=== PATIENT | female | born 1940 | race Caucasian/White ===

== ENCOUNTER 2018-01-10 07:24 | Day surgery (SDC) | payer MEDICARE, BC ==
[~2018-01-10 07:24] MED LIST: Gentamicin 40 MG/ML 2 ML Vial ONE; Midazolam 1 MG/ML 2 ML SDV ONE; Povidone-Iodine 10% Soln 118.25 ML Bottle ONE; Propofol 200 MG/20 ML SDV ONE; fentaNYL 100 MCG/2 ML SDV ONE
[2018-01-10] MEDS ORDERED: ceFAZolin 2 GM in Premix Bag 1 BAG IV ONE (08:00)
[2018-01-10] MEDS ORDERED: Lactated Ringers 1,000 ML IV SCH (08:00)
[2018-01-10] MEDS ORDERED: Scopolamine 1.5 MG Transdermal Patch TOP SCH (08:00)
[2018-01-10] MEDS ORDERED: Acetaminophen 500 MG Tab PO ONE (08:00)
[2018-01-10] MEDS ORDERED: Gabapentin 300 MG Cap PO ONE (08:00)
[2018-01-10] MEDS ORDERED: Ketamine 500 MG/5 ML MDV IV SCH (09:00)
[2018-01-10] MEDS ORDERED: Ropivacaine 49.25 ML, Ketorolac 30 MG, EPINEPHrine 0.5 MG, cloNIDine 80 MCG, Sodium Chl... INJECT ONE ×5 (09:00)
[2018-01-10] MEDS: Tranexamic Acid 970 MG in Sodium Chloride 0.9% 50 ML IV SCH ×2 (10:13→14:11)
[2018-01-10] MEDS ORDERED: Morphine 2 MG/ML Syringe IVPUSH PRN (11:25)
[2018-01-10] MEDS ORDERED: Ketorolac 30 MG/ML SDV IVPUSH PRN (11:25)
[2018-01-10] MEDS ORDERED: Docusate Sodium 100 MG Cap PO PRN (11:25)
[2018-01-10] MEDS ORDERED: Naloxone 0.4 MG/ML SDV IVPUSH PRN (11:25)
[2018-01-10] MEDS ORDERED: Aluminum Hydroxide/Magnesium Hydroxide/Simethicone Susp 30 ML Cup PO PRN (11:25)
[2018-01-10] MEDS ORDERED: Sennosides 8.6 MG Tab PO PRN (11:25)
[2018-01-10] MEDS ORDERED: Zolpidem 5 MG Tab PO PRN (11:25)
[2018-01-10] MEDS ORDERED: diphenhydrAMINE 50 MG/ML SDV IVPUSH PRN (11:25)
[2018-01-10] MEDS ORDERED: Bisacodyl 5 MG Tab PO PRN (11:25)
[2018-01-10] MEDS ORDERED: Magnesium Hydroxide 400 MG/5 ML Susp 30 ML Cup PO PRN (11:25)
[2018-01-10] MEDS ORDERED: Nitroglycerin 0.4 MG Tab.SL SL PRN (11:29)
[2018-01-10] MEDS ORDERED: Albuterol 8 GM Inhaler INH PRN (11:29)
[2018-01-10] MEDS ORDERED: Acetaminophen 1,000 MG in Premix Bag 1 BAG IV SCH (11:30)
[2018-01-10] MEDS ORDERED: fentaNYL 100 MCG/2 ML SDV IVPUSH ONE (11:39)
[2018-01-10] MEDS: Lactated Ringers 1,000 ML IV SCH ×2 (11:58→20:11)
--- NOTE | 2018-01-10 13:21 | CR ---
Knee 1V or 2V Lt INDICATION: post total knee replacement FINDINGS: Postoperative changes left total knee arthroplasty. Negative for postoperative purposes.
--- NOTE | 2018-01-10 14:53 | PCM.PN ---
- General Info Date of Service: 01/10/18 Functional Status: Reports: Pain Controlled - Review of Systems Pulmonary: Denies: Shortness of Breath Musculoskeletal: Reports: Joint Pain (left knee) Systems Review Comment:: No acute events since surgery. She had an uneventful left total knee arthroplasty. Moderate pain postoperatively. No paresthesias. She is able to wiggle her toes on both feet without difficulty. No complaints of shortness of breath or abdominal pain. - Patient Data Vitals - Most Recent: Last Vital Signs Temp 35.6 C 01/10/18 13:32 Pulse 50 L 01/10/18 13:57 Resp 16 01/10/18 13:57 BP 123/62 01/10/18 13:47 Pulse Ox 93 L 01/10/18 13:57 Weight - Most Recent: 94.801 kg I&O - Last 24 Hours: Intake & Output 01/09/18 01/10/18 01/10/18 22:59 06:59 14:59 Intake Total 200 Output Total 0 Balance 200 Lab Results Last 24 Hours: Laboratory Results - last 24 hr 01/10/18 01/10/18 Range/Units 07:45 08:28 Bleeding Time 8.5 (2.5-9.5) min Blood Type O POSITIVE Gel Antibody Screen Negative Med Orders - Current: Current Medications Al Hydroxide/Mg Hydroxide (Mag-Al Plus) 30 ml PO Q4H PRN PRN Reason: Constipation Albuterol (Ventolin Hfa) 0 gm INH Q6H PRN PRN Reason: Wheezing Amlodipine Besylate (Norvasc) 10 mg PO BEDTIME MICHELLE Bisacodyl (Dulcolax) 10 mg PO DAILY PRN PRN Reason: Constipation Cholestyramine Resin (Cholestyramine Packet) 4 gm PO DAILY@1000 MICHELLE Clopidogrel Bisulfate (Plavix) 75 mg PO DAILY MICHELLE Diphenhydramine HCl (Benadryl) 25 mg IVPUSH Q4H PRN PRN Reason: Itching Docusate Sodium (Colace) 100 mg PO BID PRN PRN Reason: Constipation Hydrochlorothiazide (Hydrochlorothiazide) 25 mg PO DAILY MICHELLE Acetaminophen 1,000 mg/ Premix 100 mls @ 400 mls/hr IV Q6H MICHELLE Stop: 01/11/18 05:44 Last Admin: 01/10/18 14:11 Dose: Not Given Lactated Ringer's (Ringers, Lactated) 1,000 mls @ 100 mls/hr IV ASDIRECTED [facility] Last Admin: 01/10/18 11:58 Dose: 100 mls/hr Insulin Detemir (Levemir) 17 unit SUBCUT BID [facility] Ketamine HCl (Ketalar) 27 mg IV ASDIRECTED [facility] Ketorolac Tromethamine (Toradol) 30 mg IVPUSH Q8H PRN PRN Reason: Pain Lisinopril (Prinivil) 20 mg PO BID [facility] Magnesium Hydroxide (Milk Of Magnesia) 30 ml PO BID PRN PRN Reason: Constipation Melatonin (Melatonin) 6 mg PO BEDTIME [facility] Metoprolol Tartrate (Lopressor) 25 mg PO BID [facility] Morphine Sulfate (Morphine) 2 mg IVPUSH Q2H PRN PRN Reason: Pain Naloxone HCl (Narcan) 0.1 mg IVPUSH ONETIME PRN PRN Reason: Oversedation Nitroglycerin (Nitrostat) 0.4 mg SL Q5M PRN PRN Reason: Chest Pain Non-Formulary Medication (Fluticasone Propionate [Flovent Hfa 44 Mcg]) 2 puff IH DAILY [facility] [Glucosamine & (Chondroitin) 1 tab PO TID [facility] Ondansetron HCl (Zofran) 8 mg IVPUSH Q4H PRN PRN Reason: Nausea/Vomiting Oxybutynin Chloride (Oxybutynin) 5 mg PO BEDTIME [facility] Potassium Chloride (Klor-Con M20) 20 meq PO TIDMEALS [facility] Scopolamine (Transderm-Scop) 1.5 mg TOP Q72H [facility] Stop: 01/13/18 07:00 Last Admin: 01/10/18 07:47 Dose: 1.5 mg Senna (Senna) 8.6 mg PO BID PRN PRN Reason: Constipation Simvastatin (Zocor) 20 mg PO BEDTIME [facility] Sodium Chloride (Saline Flush) 10 ml FLUSH DAILY [facility] Tramadol HCl (Ultram) 100 mg PO Q6H PRN PRN Reason: Pain Zolpidem Tartrate (Ambien) 5 mg PO BEDTIME PRN PRN Reason: Sleep Discontinued Medications Acetaminophen (Tylenol Extra Strength) 1,000 mg PO ONETIME ONE Stop: 01/10/18 08:01 Last Admin: 01/10/18 07:47 Dose: 1,000 mg Ropivacaine 49.25 ml/Ketorolac Tromethamine 30 mg/Epinephrine HCl 0.5 mg/ Clonidine HCl 80 mcg/ Sodium Chloride 48.45 ml 0 ml INJECT ONETIME ONE Stop: 01/10/18 09:01 Fentanyl (Sublimaze) Confirm Administered Dose 100 mcg .ROUTE .STK-MED ONE Stop: 01/10/18 06:45 Fentanyl (Sublimaze) 100 mcg IVPUSH ONETIME ONE Stop: 01/10/18 11:40 Last Admin: 01/10/18 11:50 Dose: 100 mcg Gabapentin (Neurontin) 300 mg PO ONETIME ONE Stop: 01/10/18 08:01 Last Admin: 01/10/18 07:47 Dose: 300 mg Gentamicin Sulfate (Gentamicin) Confirm Administered Dose 240 mg .ROUTE .STK- MED ONE Stop: 01/10/18 07:10 Last Admin: 01/10/18 10:18 Dose: 240 mg Cefazolin Sodium/Dextrose 2 gm (/ Premix) 50 mls @ 100 mls/hr IV ONETIME ONE Stop: 01/10/18 08:29 Last Admin: 01/10/18 09:30 Dose: 100 mls/hr Lactated Ringer's (Ringers, Lactated) 1,000 mls @ 0 mls/hr IV ASDIRECTED [facility] Last Admin: 01/10/18 08:17 Dose: 100 mls/hr Tranexamic Acid 970 mg/ Sodium (Chloride) 59.7 mls @ 238.8 mls/hr IV Q2H [facility] Stop: 01/10/18 11:14 Last Admin: 01/10/18 14:11 Dose: Not Given Midazolam HCl (Versed 1 Mg/Ml) Confirm Administered Dose 2 mg .ROUTE .STK-MED ONE Stop: 01/10/18 06:46 Povidone Iodine (Betadine 10% Soln) Confirm Administered Dose 1 ml .ROUTE .STK- MED ONE Stop: 01/10/18 07:10 Last Admin: 01/10/18 10:19 Dose: 1 ml Propofol (Diprivan 20 Ml) Confirm Administered Dose 200 mg .ROUTE .STK-MED ONE Stop: 01/10/18 06:45 - Exam Quality Assessment: Supplemental Oxygen General: Alert, Oriented, Cooperative, No Acute Distress Neck: Supple Lungs: Clear to Auscultation, Normal Respiratory Effort Cardiovascular: Regular Rate, Regular Rhythm GI/Abdominal Exam: Normal Bowel Sounds, Soft, No Distention Extremities: No Pedal Edema, Other (left knee wrapped in SAMEER. 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: Chronic Current Visit: Yes - Problem List Review Problem List Initiated/Reviewed/Updated: Yes - My Orders Last 24 Hours: My Active Orders 01/10/18 14:51 Communication Order [RC] PRN Communication Order [RC] PRN Diabetes Education [RC] Click to Edit Notify Provider [RC] PRN 01/10/18 16:30 GLUCOSE POC LAB TO COLLECT [POC] QIDACANDBED 01/10/18 17:00 Insulin Aspart [NovoLOG] See Protocol SUBCUT QIDACANDBED 01/10/18 21:00 GLUCOSE POC LAB TO COLLECT [POC] QIDACANDBED 01/11/18 07:30 GLUCOSE POC LAB TO COLLECT [POC] QIDACANDBED 01/11/18 11:30 GLUCOSE POC LAB TO COLLECT [POC] QIDACANDBED 01/11/18 16:30 GLUCOSE POC LAB TO COLLECT [POC] QIDACANDBED 01/11/18 21:00 GLUCOSE POC LAB TO COLLECT [POC] QIDACANDBED 01/12/18 07:30 GLUCOSE POC LAB TO COLLECT [POC] QIDACANDBED 01/12/18 11:30 GLUCOSE POC LAB TO COLLECT [POC] QIDACANDBED 01/12/18 16:30 GLUCOSE POC LAB TO COLLECT [POC] QIDACANDBED 01/12/18 21:00 GLUCOSE POC LAB TO COLLECT [POC] QIDACANDBED 01/13/18 07:30 GLUCOSE POC LAB TO COLLECT [POC] QIDACANDBED 01/13/18 11:30 GLUCOSE POC LAB TO COLLECT [POC] QIDACANDBED 01/13/18 16:30 GLUCOSE POC LAB TO COLLECT [POC] QIDACANDBED 01/13/18 21:00 GLUCOSE POC LAB TO COLLECT [POC] QIDACANDBED 01/14/18 07:30 GLUCOSE POC LAB TO COLLECT [POC] QIDACANDBED 01/14/18 11:30 GLUCOSE POC LAB TO COLLECT [POC] QIDACANDBED 01/14/18 16:30 GLUCOSE POC LAB TO COLLECT [POC] QIDACANDBED 01/14/18 21:00 GLUCOSE POC LAB TO COLLECT [POC] QIDACANDBED 01/15/18 07:30 GLUCOSE POC LAB TO COLLECT [POC] QIDACANDBED 01/15/18 11:30 GLUCOSE POC LAB TO COLLECT [POC] QIDACANDBED 01/15/18 16:30 GLUCOSE POC LAB TO COLLECT [POC] QIDACANDBED 01/15/18 21:00 GLUCOSE POC LAB TO COLLECT [POC] QIDACANDBED - Plan Plan:: ASSESSMENT AND PLAN Primary osteoarthritis of the left knee - status post left total knee arthroplasty. Stable and doing well postoperatively. -Postop cares per orthopedic team Insulin dependent diabetes mellitus, controlled - patient reports mild elevation of morning sugars but in general has had good control. -Continue Januvia -Substitute Levemir twice daily for Tresiba -Low-dose sliding scale insulin Essential hypertension - blood pressure control acceptable so far. -Continue home medications Artie Pedro M.D.
[2018-01-10] MEDS: Potassium Chloride 20 MEQ Tab.ER PO SCH ×2 (15:09→16:55)
[2018-01-10] MEDS: Ondansetron 4 MG/2 ML SDV IVPUSH PRN (15:10)
[2018-01-10] MEDS: Acetaminophen 1,000 MG in Premix Bag 1 BAG IV SCH ×2 (16:54→21:33)
[2018-01-10] MEDS: Insulin Aspart 100 Units/ML 3 ML Pen SUBCUT SCH ×2 (17:02→21:32)
[2018-01-10] MEDS: traMADol 50 MG Tab PO PRN (19:32)
--- NOTE | 2018-01-10 20:49 | OR ---
DATE OF PROCEDURE: 01/10/2018 PREOPERATIVE DIAGNOSIS: Left knee primary osteoarthritis. POSTOPERATIVE DIAGNOSIS: Left knee primary osteoarthritis. PROCEDURE: Left total knee arthroplasty. ANESTHESIA: Spinal plus conscious sedation. FLUID: Lactated Ringer solution. ESTIMATED BLOOD LOSS: 150 mL. COMPLICATIONS: None. SPECIMEN: None. DISCHARGE DISPOSITION: Stable to PACU. INSTRUMENTATION: DePuy attune size 6 cruciate retaining femoral component; size 6, 8 mm fixed bearing tibial insert polyethylene; size 6 tibial base fixed bearing and 35 mm polyethylene dome patella. INDICATIONS FOR PROCEDURE: The patient was seen preoperatively in the clinic. She had failed nonoperative treatment. Preoperative imaging confirmed the above mentioned diagnosis. Risks and benefits of the procedure were explained to the patient. Informed consent was obtained. DETAILS OF PROCEDURE: The patient was seen preoperatively by myself and the Anesthesia staff at the preoperative holding area where the operative site was marked. She was brought to the operative suite by the Anesthesia staff where spinal sedation plus conscious sedation was administered. A well-padded tourniquet was placed under left thigh. The left lower extremity was then prepped and draped in a sterile manner. Time-out was called identifying the correct patient, correct procedure, correct site, and the antibiotics had begun within an appropriate period of time. The left lower extremity was then elevated and exsanguinated. Tourniquet was raised to 300 mmHg for 37 minutes and let down during cementing. A midline incision was made 3 fingerbreadths proximal to the patella down to the level of the tibial tubercle in the midline. I then made a medial parapatellar arthrotomy. We then performed a full synovectomy with removal of the infrapatellar fat pad. I then everted the patella and flexed the knee and then made 2 cuts on the patella freehand. I then extended the knee and then trialed with a 35 and then drilled and then placed the trial. I then flexed the knee again, lateralizing the patella, and then reamed the distal femoral canal. I then inserted my intramedullary guide at 9 mm distal cut, 5 mm valgus. I pinned this in place, made the distal cut, and then removed the pins and guide. I then released the anterior cruciate ligament and then used a posterior condylar guide at 3-degree valgus, pinned this in place, it measured a 6. I removed the guide and then placed the chamfer block. I then made my anterior and posterior chamfer cuts. I then removed the block and then used an osteotome to remove any bone fragments. I then used the blunt osteotome and then protecting the medial and lateral collateral ligaments with retractors. I used my extramedullary tibial guide with a 3 mm resection using the stylus, pinned that in place, and then made my proximal tibial resection after this had been completed. I then removed my retractors and then placed laminar screen printing cloth spreader in the medial and lateral compartments and then removed any extra meniscus and any posterior osteophytes. After this, then, I took care to preserve as much of the PCL as possible. After this had been performed, I anteriorized the tibia again with blunt Hohmann and protected the medial and lateral collateral ligaments and applied my tibial baseplate and cutting guide. I then placed the tower, reamed the proximal tibia, and then tamped the proximal tibia. I then placed my trial femoral component and then placed my trial polyethylene inserts until I got one with stability, which was the one mentioned above. I then drilled my lugs for the distal femur. We then removed all the components, copiously irrigated with saline, dried as much as possible, and then cemented those final components in place. After I let the cement dry, I then controlled any bleeders and then removed any extra cement and irrigated multiple times to make sure that we got any extra cement fragments out from the posterior capsule. After this had been completed, I placed some Betadine infused irrigation through the wound and then suctioned this out. We then placed two #5 Ethibond at the proximal and distal pole of the patella followed by #1 StrataFix in a running continuous manner through the arthrotomy, followed by #2 StrataFix subcutaneously, followed by skin kmaryn, followed by sterile dressing. The patient was then allowed to awaken from conscious sedation and was transferred to the hospital bed and taken to the PACU in stable condition. Nick Ledezma DO /[id number]
[2018-01-10] MEDS: Simvastatin 20 MG Tab PO SCH (21:29)
[2018-01-10] MEDS: amLODIPine 10 MG Tab PO SCH (21:30)
[2018-01-10] MEDS: Oxybutynin 5 MG Tab PO SCH (21:30)
[2018-01-10] MEDS: Melatonin 3 MG Tab PO SCH (21:31)
[2018-01-10] MEDS: Lisinopril 20 MG Tab PO SCH (21:31)
[2018-01-10] MEDS: Metoprolol Tartrate 25 MG Tab PO SCH (21:31)
[2018-01-10] MEDS: Insulin Detemir 100 Units/ML 3 ML Pen SUBCUT SCH (21:33)
[2018-01-11] MEDS: Acetaminophen 1,000 MG in Premix Bag 1 BAG IV SCH ×2 (03:35→09:02)
[2018-01-11] MEDS: traMADol 50 MG Tab PO PRN ×2 (07:21→14:47)
[2018-01-11] MEDS ORDERED: Sodium Chloride 0.9% 500 ML IV ONE (08:00)
--- NOTE | 2018-01-11 08:39 | PCM.PN ---
- General Info Functional Status: Reports: Pain Controlled - Review of Systems General: Reports: Weakness HEENT: Reports: No Symptoms Pulmonary: Reports: No Symptoms Cardiovascular: Reports: No Symptoms Gastrointestinal: Reports: No Symptoms Genitourinary: Reports: No Symptoms Musculoskeletal: Reports: Joint Pain Skin: Reports: No Symptoms Neurological: Reports: No Symptoms Psychiatric: Reports: No Symptoms - Patient Data Vitals - Most Recent: Last Vital Signs Temp 97.3 F 01/11/18 07:00 Pulse 68 01/11/18 07:00 Resp 18 01/11/18 07:00 BP 107/66 01/11/18 07:00 Pulse Ox 92 L 01/11/18 07:35 Weight - Most Recent: 209 lb I&O - Last 24 Hours: Intake & Output 01/10/18 01/11/18 01/11/18 22:59 06:59 14:59 Intake Total 1520 1397 Output Total 650 Balance 1520 747 Lab Results Last 24 Hours: Laboratory Results - last 24 hr 01/10/18 01/11/18 01/11/18 Range/Units 08:28 04:50 04:50 WBC 12.0 H (4.5-11.0) K/uL RBC 3.32 (3.30-5.50) M/uL Hgb 10.4 L D (12.0-15.0) g/dL Hct 31.7 L (36.0-48.0) % MCV 96 (80-98) fL MCH 31 (27-31) pg MCHC 33 (32-36) % Plt Count 223 (150-400) K/uL Neut % (Auto) 79 H (36-66) % Lymph % (Auto) 13 L (24-44) % Burt % (Auto) 8 H (2-6) % Eos % (Auto) 0 L (2-4) % Baso % (Auto) 0 (0-1) % Bleeding Time 8.5 (2.5-9.5) min Sodium 138 L (140-148) mmol/L Potassium 4.5 (3.6-5.2) mmol/L Chloride 105 (100-108) mmol/L Carbon Dioxide 29 (21-32) mmol/L Anion Gap 8.5 (5.0-14.0) mmol/L BUN 13 (7-18) mg/dL Creatinine 0.9 (0.6-1.0) mg/dL Est Cr Clr Drug Dosing 45.20 mL/min Estimated GFR (MDRD) > 60 (>60) Glucose 171 H (74-106) mg/dL Calcium 8.0 L (8.5-10.1) mg/dL Total Bilirubin 0.5 (0.2-1.0) mg/dL AST 11 L (15-37) U/L ALT 16 (12-78) U/L Alkaline Phosphatase 57 (46-116) U/L Total Protein 5.0 L (6.4-8.2) g/dL Albumin 2.5 L (3.4-5.0) g/dL Globulin 2.5 (2.3-3.5) g/dL Albumin/Globulin Ratio 1.0 L (1.2-2.2) Med Orders - Current: Current Medications Al Hydroxide/Mg Hydroxide (Mag-Al Plus) 30 ml PO Q4H PRN PRN Reason: Constipation Albuterol (Ventolin Hfa) 0 gm INH Q6H PRN PRN Reason: Wheezing Amlodipine Besylate (Norvasc) 10 mg PO BEDTIME [facility] Last Admin: 01/10/18 21:30 Dose: 10 mg Bisacodyl (Dulcolax) 10 mg PO DAILY PRN PRN Reason: Constipation Cholestyramine Resin (Cholestyramine Packet) 4 gm PO DAILY@1000 [facility]HELLE Clopidogrel Bisulfate (Plavix) 75 mg PO DAILY [facility] Diphenhydramine HCl (Benadryl) 25 mg IVPUSH Q4H PRN PRN Reason: Itching Docusate Sodium (Colace) 100 mg PO BID PRN PRN Reason: Constipation Hydrochlorothiazide (Hydrochlorothiazide) 25 mg PO DAILY [facility] Lactated Ringer's (Ringers, Lactated) 1,000 mls @ 100 mls/hr IV ASDIRECTED [facility] Last Admin: 01/10/18 20:11 Dose: 100 mls/hr Acetaminophen 1,000 mg/ Premix 100 mls @ 400 mls/hr IV Q6H [facility] Stop: 01/11/18 10:14 Last Admin: 01/11/18 03:35 Dose: 400 mls/hr Sodium Chloride (Normal Saline) 500 mls @ 500 mls/hr IV BOLUS ONE Stop: 01/11/18 08:59 Insulin Aspart (Novolog) 0 unit SUBCUT QIDACANDBED [facility]; Protocol Last Admin: 01/10/18 21:32 Dose: 3 units Insulin Detemir (Levemir) 17 unit SUBCUT BID [facility] Last Admin: 01/10/18 21:33 Dose: 17 units Ketamine HCl (Ketalar) 27 mg IV ASDIRECTED [facility] Ketorolac Tromethamine (Toradol) 30 mg IVPUSH Q8H PRN PRN Reason: Pain Lisinopril (Prinivil) 20 mg PO BID [facility] Last Admin: 01/10/18 21:31 Dose: 20 mg Magnesium Hydroxide (Milk Of Magnesia) 30 ml PO BID PRN PRN Reason: Constipation Melatonin (Melatonin) 6 mg PO BEDTIME [facility] Last Admin: 01/10/18 21:31 Dose: 6 mg Metoprolol Tartrate (Lopressor) 25 mg PO BID [facility] Last Admin: 01/10/18 21:31 Dose: 25 mg Morphine Sulfate (Morphine) 2 mg IVPUSH Q2H PRN PRN Reason: Pain Last Admin: 01/10/18 15:04 Dose: 2 mg Naloxone HCl (Narcan) 0.1 mg IVPUSH ONETIME PRN PRN Reason: Oversedation Nitroglycerin (Nitrostat) 0.4 mg SL Q5M PRN PRN Reason: Chest Pain Non-Formulary Medication (Fluticasone Propionate [Flovent Hfa 44 Mcg]) 2 puff IH DAILY [facility] [Glucosamine & (Chondroitin) 1 tab PO TID [facility] Last Admin: 01/10/18 21:26 Dose: Not Given Ondansetron HCl (Zofran) 8 mg IVPUSH Q4H PRN PRN Reason: Nausea/Vomiting Last Admin: 01/10/18 15:10 Dose: 8 mg Oxybutynin Chloride (Oxybutynin) 5 mg PO BEDTIME [facility] Last Admin: 01/10/18 21:30 Dose: 5 mg Potassium Chloride (Klor-Con M20) 20 meq PO TIDMEALS [facility] Last Admin: 01/10/18 16:55 Dose: 20 meq Scopolamine (Transderm-Scop) 1.5 mg TOP Q72H [facility] Stop: 01/13/18 07:00 Last Admin: 01/10/18 07:47 Dose: 1.5 mg Senna (Senna) 8.6 mg PO BID PRN PRN Reason: Constipation Simvastatin (Zocor) 20 mg PO BEDTIME [facility] Last Admin: 01/10/18 21:29 Dose: 20 mg Sodium Chloride (Saline Flush) 10 ml FLUSH DAILY [facility] Tramadol HCl (Ultram) 100 mg PO Q6H PRN PRN Reason: Pain Last Admin: 01/11/18 07:21 Dose: 100 mg Zolpidem Tartrate (Ambien) 5 mg PO BEDTIME PRN PRN Reason: Sleep Discontinued Medications Acetaminophen (Tylenol Extra Strength) 1,000 mg PO ONETIME ONE Stop: 01/10/18 08:01 Last Admin: 01/10/18 07:47 Dose: 1,000 mg Ropivacaine 49.25 ml/Ketorolac Tromethamine 30 mg/Epinephrine HCl 0.5 mg/ Clonidine HCl 80 mcg/ Sodium Chloride 48.45 ml 0 ml INJECT ONETIME ONE Stop: 01/10/18 09:01 Last Admin: 01/11/18 00:17 Dose: Not Given Fentanyl (Sublimaze) Confirm Administered Dose 100 mcg .ROUTE .STK-MED ONE Stop: 01/10/18 06:45 Fentanyl (Sublimaze) 100 mcg IVPUSH ONETIME ONE Stop: 01/10/18 11:40 Last Admin: 01/10/18 11:50 Dose: 100 mcg Gabapentin (Neurontin) 300 mg PO ONETIME ONE Stop: 01/10/18 08:01 Last Admin: 01/10/18 07:47 Dose: 300 mg Gentamicin Sulfate (Gentamicin) Confirm Administered Dose 240 mg .ROUTE .STK- MED ONE Stop: 01/10/18 07:10 Last Admin: 01/10/18 10:18 Dose: 240 mg Cefazolin Sodium/Dextrose 2 gm (/ Premix) 50 mls @ 100 mls/hr IV ONETIME ONE Stop: 01/10/18 08:29 Last Admin: 01/10/18 09:30 Dose: 100 mls/hr Lactated Ringer's (Ringers, Lactated) 1,000 mls @ 0 mls/hr IV ASDIRECTED [facility] Last Admin: 01/10/18 08:17 Dose: 100 mls/hr Tranexamic Acid 970 mg/ Sodium (Chloride) 59.7 mls @ 238.8 mls/hr IV Q2H [facility] Stop: 01/10/18 11:14 Last Admin: 01/10/18 14:11 Dose: Not Given Acetaminophen 1,000 mg/ Premix 100 mls @ 400 mls/hr IV Q6H [facility] Stop: 01/11/18 05:44 Last Admin: 01/10/18 14:11 Dose: Not Given Insulin Detemir (Levemir) 17 unit SUBCUT BID [facility] Midazolam HCl (Versed 1 Mg/Ml) Confirm Administered Dose 2 mg .ROUTE .STK-MED ONE Stop: 01/10/18 06:46 Povidone Iodine (Betadine 10% Soln) Confirm Administered Dose 1 ml .ROUTE .STK- MED ONE Stop: 01/10/18 07:10 Last Admin: 01/10/18 10:19 Dose: 1 ml Propofol (Diprivan 20 Ml) Confirm Administered Dose 200 mg .ROUTE .STK-MED ONE Stop: 01/10/18 06:45 - Exam General: Alert, Oriented HEENT: Pupils Equal, Mucous Membr. Moist/[place] Lungs: Normal Respiratory Effort Extremities: Joint Swelling Peripheral Pulses: 2+: Posterior Tibial (L), Posterior Tibial (R) Skin: Warm, Dry, Intact Wound/Incisions: Healing Well, Dressing Dry and Intact, No Drainage Neurological: No New Focal Deficit, Reflexes Equal Bilateral Psy/Mental Status: Alert, Normal Affect, Normal Mood Physical Findings Comments:: Patient has good range of motion spring. She has no pain at rest. When she is standing the pain is 5 out of 10. Her range of motion passively is 0-100 flexion. Actively it is 30-100 flexion. Her pain is well controlled. She states that she just feels little bit weak this morning. Her blood pressure is low surgery we are waiting for that resolved prior to starting physical therapy. - Problem List Review Problem List Initiated/Reviewed/Updated: Yes - My Orders Last 24 Hours: My Active Orders 01/10/18 08:00 Scopolamine [Transderm-Scop] 1.5 mg TOP Q72H SCD [Sequential Compression Device] [OM.PC] Routine 01/10/18 09:00 Ketamine [Ketalar] 27 mg IV ASDIRECTED 01/10/18 11:25 Patient Status [ADT] Routine Ambulate [RC] ASDIRECTED Antiembolic Devices [RC] .Routine Head of Bed Elevation [RC] CONTINUOUS May Shower [RC] ASDIRECTED Neurovascular Check [RC] Q4HR Pulse Oximetry [RC] CONTINUOUS RT Incentive Spirometry [RC] Q1HWA Turn, Cough, Deep Breathe [RC] Q1HWA Up to Chair [RC] TIDMEALS Urinary Catheter Removal [RC] Per Unit Routine VTE/DVT Education [RC] Click to Edit Wound Care [RC] Q12H Consult to Physician [CONS] Routine OT Evaluation and Treatment [CONS] Routine PT Evaluation and Treatment [CONS] Routine Respiratory Care Assess and Treatment [CONS] Routine Alum Hydrox/Mag Hydrox/Simeth [Mag-Al Plus] 30 ml PO Q4H PRN Bisacodyl [Dulcolax] 10 mg PO DAILY PRN Docusate Sodium [Colace] 100 mg PO BID PRN Ketorolac [Toradol] 30 mg IVPUSH Q8H PRN Magnesium Hydroxide [Milk of Magnesia] 30 ml PO BID PRN Morphine 2 mg IVPUSH Q2H PRN Naloxone [Narcan] 0.1 mg IVPUSH ONETIME PRN Ondansetron [Zofran] 8 mg IVPUSH Q4H PRN Sennosides [Senna] 8.6 mg PO BID PRN Zolpidem [Ambien] 5 mg PO BEDTIME PRN diphenhydrAMINE [Benadryl] 25 mg IVPUSH Q4H PRN traMADol [Ultram] 100 mg PO Q6H PRN DVT/VTE Prophylaxis Reflex [OM.PC] Routine Sequential Compression Device [OM.PC] Per Unit Routine Weight bearing status [OM.PC] Routine Resuscitation Status Routine 01/10/18 11:29 Albuterol [Ventolin HFA] 0 gm INH Q6H PRN Nitroglycerin [Nitrostat] 0.4 mg SL Q5M PRN 01/10/18 11:30 Lactated Ringers [Ringers, Lactated] 1,000 ml IV ASDIRECTED Convert IV to Saline Lock [OM.PC] PER UNIT ROUTINE Ice Therapy [OM.PC] PER UNIT ROUTINE Oral Care [OM.PC] BID 01/10/18 14:00 Gluc 2KCl/Chondr/Alvin Hy/Hy Ac [Glucosamine & Chondroitin Cap] 1 tab PO TID Potassium Chloride [Klor-Con M20] 20 meq PO TIDMEALS 01/10/18 16:00 Acetaminophen [Ofirmev] 1,000 mg Premix Bag 1 bag IV Q6H 01/10/18 21:00 Lisinopril [Prinivil] 20 mg PO BID Melatonin 6 mg PO BEDTIME Metoprolol Tartrate [Lopressor] 25 mg PO BID Oxybutynin 5 mg PO BEDTIME Simvastatin [Zocor] 20 mg PO BEDTIME amLODIPine [Norvasc] 10 mg PO BEDTIME 01/10/18 21:05 Insulin Detemir [Levemir] 17 unit SUBCUT BID 01/10/18 Lunch Advance Diet Instructions [DIET] 01/11/18 09:00 Alogliptin Benzoate [Alogliptin] 25 mg PO DAILY Clopidogrel [Plavix] 75 mg PO DAILY Fluticasone Propionate [Flovent HFA 44 mcg] 2 puff IH DAILY Hydrochlorothiazide 25 mg PO DAILY Sodium Chloride 0.9% [Saline Flush] 10 ml FLUSH DAILY 01/11/18 10:00 Cholestyramine/Sucrose [Cholestyramine Packet] 4 gm PO DAILY@1000 01/11/18 11:30 Oral Care [OM.PC] BID 01/12/18 05:15 CBC WITH AUTO DIFF [HEME] DAILY COMPREHENSIVE METABOLIC PN,CMP [CHEM] DAILY 01/12/18 11:30 Oral Care [OM.PC] BID 01/13/18 05:15 CBC WITH AUTO DIFF [HEME] DAILY COMPREHENSIVE METABOLIC PN,CMP [CHEM] DAILY 01/13/18 11:30 Oral Care [OM.PC] BID 01/14/18 05:15 CBC WITH AUTO DIFF [HEME] DAILY COMPREHENSIVE METABOLIC PN,CMP [CHEM] DAILY 01/14/18 11:30 Oral Care [OM.PC] BID 01/15/18 05:15 CBC WITH AUTO DIFF [HEME] DAILY 01/15/18 11:30 Oral Care [OM.PC] BID 01/16/18 05:15 CBC WITH AUTO DIFF [HEME] DAILY 01/16/18 11:30 Oral Care [OM.PC] BID 01/17/18 11:30 Oral Care [OM.PC] BID 01/18/18 11:30 Oral Care [OM.PC] BID 01/19/18 11:30 Oral Care [OM.PC] BID - Plan Plan:: ASSESSMENT AND PLAN Primary osteoarthritis of the left knee - status post left total knee arthroplasty. Stable and doing well postoperatively. -Postop cares per orthopedic team Insulin dependent diabetes mellitus, controlled - patient reports mild elevation of morning sugars but in general has had good control. -Continue Januvia -Substitute Levemir twice daily for Tresiba -Low-dose sliding scale insulin Essential hypertension - blood pressure control acceptable so far. -Continue home medications Artie Pedro M.D.
--- NOTE | 2018-01-11 08:42 | PCM.DCSUM1 ---
Discharge Summary - Hospital Course Brief History: The patient was seen preoperatively in the clinic. She was admitted for left total knee arthroplasty on 01/10/2018. The procedure was performed. She is Postoperatively for physical therapy, occupational therapy, pain control, and DVT prophylaxis. On postoperative day 1 she had decreased blood pressure which was addressed. She was discharged home in good condition. - Discharge Data Discharge Disposition: Home, Self-Care 01 Condition: Good - Patient Summary/Data Operative Procedure(s) Performed: Left total knee arthroplasty Complications: None Consults: Consultations 01/10/18 11:25 Consult to Physician [CONS] Routine Consulting Provider: Artie Pedro Call Completed to Consulting Physician: No OT Evaluation and Treatment [CONS] Routine Please Evaluate and Treat. OT Reason for Consult: Strengthening This query below is only for informational purposes and is not editable. PT Evaluation and Treatment [CONS] Routine Please Evaluate and Treat. PT Reason for Consult: Strengthening This query below is only for informational purposes and is not editable. Respiratory Care Assess and Treatment [CONS] Routine Comment: Physician Instructions: Post-op Pneumonia Prevention - Patient Instructions Diet: Usual Diet as Tolerated Activity: Apply Ice, As Tolerated Driving: Do Not Drive Showering/Bathing: May Shower Wound/Incision Care: Keep Operative Site/Wound Site Clean and Dry, Change Dressing Daily Notify Provider of: Fever, Increased Pain, Swelling and Redness, Drainage, Nausea and/or Vomiting - Discharge Plan Home Medications: Home Meds Albuterol Sulfate [Proair Hfa] 8.5 gm IH Q6H PRN 06/03/14 [History] Calcium Polycarbophil [Fibercon] 625 mg PO DAILY 06/03/14 [History] Clopidogrel Bisulfate [Clopidogrel] 75 mg PO DAILY 06/03/14 [History] Fluticasone Propionate [Flovent HFA 44 mcg] 2 puff IH DAILY 06/03/14 [History] Gluc 2KCl/Chondr/Alvin Hy/Hy Ac [Glucosamine & Chondroitin Cap] 1 tab PO TID 11/15 [History] Hydrochlorothiazide 25 mg PO DAILY 06/03/14 [History] Lactobacillus Acidophilus [Acidophilus] 1 each PO DAILY 06/03/14 [History] Lisinopril [Zestril] 20 mg PO BID 06/03/14 [History] Metoprolol Tartrate 25 mg PO BID 06/03/14 [History] Potassium Chloride 20 meq PO TID 06/03/14 [History] Simvastatin [Zocor] 20 mg PO BEDTIME 06/03/14 [History] amLODIPine Besylate [Amlodipine Besylate] 10 mg PO BEDTIME 06/03/14 [History] Calcium Carbonate/Vitamin D2 [Calcium with Vit D] 1 tab PO BID 11/10/14 [History ] Nitroglycerin [Nitrostat] 0.4 mg SL Q5M PRN 11/10/14 [History] Melatonin 5 mg PO BEDTIME 01/07/16 [History] Oxybutynin 5 mg PO BEDTIME 01/11/16 [History] Cholestyramine/Aspartame [Cholestyramine Light Powder] 4 gm PO DAILY 11/27/17 [ History] Insulin Degludec [Tresiba Flextouch U-200] 34 unit SQ DAILY 11/27/17 [History] SitaGLIPtin [Januvia] 100 mg PO DAILY 11/27/17 [History] Patient Handouts: Total Knee Replacement, Care After, Inzb-ol-Slim - Patient Data Vitals - Most Recent: Last Vital Signs Temp 97.3 F 01/11/18 07:00 Pulse 68 01/11/18 07:00 Resp 18 01/11/18 07:00 BP 107/66 01/11/18 07:00 Pulse Ox 92 L 01/11/18 07:35 Weight - Most Recent: 209 lb I&O - Last 24 hours: Intake & Output 01/10/18 01/11/18 01/11/18 22:59 06:59 14:59 Intake Total 1520 1397 Output Total 650 Balance 1520 747 Lab Results - Last 24 hrs: Laboratory Results - last 24 hr 01/10/18 01/11/18 01/11/18 Range/Units 08:28 04:50 04:50 WBC 12.0 H (4.5-11.0) K/uL RBC 3.32 (3.30-5.50) M/uL Hgb 10.4 L D (12.0-15.0) g/dL Hct 31.7 L (36.0-48.0) % MCV 96 (80-98) fL MCH 31 (27-31) pg MCHC 33 (32-36) % Plt Count 223 (150-400) K/uL Neut % (Auto) 79 H (36-66) % Lymph % (Auto) 13 L (24-44) % [place] % (Auto) 8 H (2-6) % Eos % (Auto) 0 L (2-4) % Baso % (Auto) 0 (0-1) % Bleeding Time 8.5 (2.5-9.5) min Sodium 138 L (140-148) mmol/L Potassium 4.5 (3.6-5.2) mmol/L Chloride 105 (100-108) mmol/L Carbon Dioxide 29 (21-32) mmol/L Anion Gap 8.5 (5.0-14.0) mmol/L BUN 13 (7-18) mg/dL Creatinine 0.9 (0.6-1.0) mg/dL Est Cr Clr Drug Dosing 45.20 mL/min Estimated GFR (MDRD) > 60 (>60) Glucose 171 H (74-106) mg/dL Calcium 8.0 L (8.5-10.1) mg/dL Total Bilirubin 0.5 (0.2-1.0) mg/dL AST 11 L (15-37) U/L ALT 16 (12-78) U/L Alkaline Phosphatase 57 (46-116) U/L Total Protein 5.0 L (6.4-8.2) g/dL Albumin 2.5 L (3.4-5.0) g/dL Globulin 2.5 (2.3-3.5) g/dL Albumin/Globulin Ratio 1.0 L (1.2-2.2) Med Orders - Current: Current Medications Al Hydroxide/Mg Hydroxide (Mag-Al Plus) 30 ml PO Q4H PRN PRN Reason: Constipation Albuterol (Ventolin Hfa) 0 gm INH Q6H PRN PRN Reason: Wheezing Amlodipine Besylate (Norvasc) 10 mg PO BEDTIME [facility] Last Admin: 01/10/18 21:30 Dose: 10 mg Bisacodyl (Dulcolax) 10 mg PO DAILY PRN PRN Reason: Constipation Cholestyramine Resin (Cholestyramine Packet) 4 gm PO DAILY@1000 MICHELLE Clopidogrel Bisulfate (Plavix) 75 mg PO DAILY [facility] Diphenhydramine HCl (Benadryl) 25 mg IVPUSH Q4H PRN PRN Reason: Itching Docusate Sodium (Colace) 100 mg PO BID PRN PRN Reason: Constipation Hydrochlorothiazide (Hydrochlorothiazide) 25 mg PO DAILY [facility] Lactated Ringer's (Ringers, Lactated) 1,000 mls @ 100 mls/hr IV ASDIRECTED [facility] Last Admin: 01/10/18 20:11 Dose: 100 mls/hr Acetaminophen 1,000 mg/ Premix 100 mls @ 400 mls/hr IV Q6H [facility] Stop: 01/11/18 10:14 Last Admin: 01/11/18 03:35 Dose: 400 mls/hr Sodium Chloride (Normal Saline) 500 mls @ 500 mls/hr IV BOLUS ONE Stop: 01/11/18 08:59 Insulin Aspart (Novolog) 0 unit SUBCUT QIDACANDBED [facility]; Protocol Last Admin: 01/10/18 21:32 Dose: 3 units Insulin Detemir (Levemir) 17 unit SUBCUT BID [facility] Last Admin: 01/10/18 21:33 Dose: 17 units Ketamine HCl (Ketalar) 27 mg IV ASDIRECTED [facility] Ketorolac Tromethamine (Toradol) 30 mg IVPUSH Q8H PRN PRN Reason: Pain Lisinopril (Prinivil) 20 mg PO BID [facility] Last Admin: 01/10/18 21:31 Dose: 20 mg Magnesium Hydroxide (Milk Of Magnesia) 30 ml PO BID PRN PRN Reason: Constipation Melatonin (Melatonin) 6 mg PO BEDTIME [facility] Last Admin: 01/10/18 21:31 Dose: 6 mg Metoprolol Tartrate (Lopressor) 25 mg PO BID [facility] Last Admin: 01/10/18 21:31 Dose: 25 mg Morphine Sulfate (Morphine) 2 mg IVPUSH Q2H PRN PRN Reason: Pain Last Admin: 01/10/18 15:04 Dose: 2 mg Naloxone HCl (Narcan) 0.1 mg IVPUSH ONETIME PRN PRN Reason: Oversedation Nitroglycerin (Nitrostat) 0.4 mg SL Q5M PRN PRN Reason: Chest Pain Non-Formulary Medication (Fluticasone Propionate [Flovent Hfa 44 Mcg]) 2 puff IH DAILY [facility] [Glucosamine & (Chondroitin) 1 tab PO TID [facility] Last Admin: 01/10/18 21:26 Dose: Not Given Ondansetron HCl (Zofran) 8 mg IVPUSH Q4H PRN PRN Reason: Nausea/Vomiting Last Admin: 01/10/18 15:10 Dose: 8 mg Oxybutynin Chloride (Oxybutynin) 5 mg PO BEDTIME [facility] Last Admin: 01/10/18 21:30 Dose: 5 mg Potassium Chloride (Klor-Con M20) 20 meq PO TIDMEALS [facility] Last Admin: 01/10/18 16:55 Dose: 20 meq Scopolamine (Transderm-Scop) 1.5 mg TOP Q72H [facility] Stop: 01/13/18 07:00 Last Admin: 01/10/18 07:47 Dose: 1.5 mg Senna (Senna) 8.6 mg PO BID PRN PRN Reason: Constipation Simvastatin (Zocor) 20 mg PO BEDTIME [facility] Last Admin: 01/10/18 21:29 Dose: 20 mg Sodium Chloride (Saline Flush) 10 ml FLUSH DAILY [facility] Tramadol HCl (Ultram) 100 mg PO Q6H PRN PRN Reason: Pain Last Admin: 01/11/18 07:21 Dose: 100 mg Zolpidem Tartrate (Ambien) 5 mg PO BEDTIME PRN PRN Reason: Sleep Discontinued Medications Acetaminophen (Tylenol Extra Strength) 1,000 mg PO ONETIME ONE Stop: 01/10/18 08:01 Last Admin: 01/10/18 07:47 Dose: 1,000 mg Ropivacaine 49.25 ml/Ketorolac Tromethamine 30 mg/Epinephrine HCl 0.5 mg/ Clonidine HCl 80 mcg/ Sodium Chloride 48.45 ml 0 ml INJECT ONETIME ONE Stop: 01/10/18 09:01 Last Admin: 01/11/18 00:17 Dose: Not Given Fentanyl (Sublimaze) Confirm Administered Dose 100 mcg .ROUTE .STK-MED ONE Stop: 01/10/18 06:45 Fentanyl (Sublimaze) 100 mcg IVPUSH ONETIME ONE Stop: 01/10/18 11:40 Last Admin: 01/10/18 11:50 Dose: 100 mcg Gabapentin (Neurontin) 300 mg PO ONETIME ONE Stop: 01/10/18 08:01 Last Admin: 01/10/18 07:47 Dose: 300 mg Gentamicin Sulfate (Gentamicin) Confirm Administered Dose 240 mg .ROUTE .STK- MED ONE Stop: 01/10/18 07:10 Last Admin: 01/10/18 10:18 Dose: 240 mg Cefazolin Sodium/Dextrose 2 gm (/ Premix) 50 mls @ 100 mls/hr IV ONETIME ONE Stop: 01/10/18 08:29 Last Admin: 01/10/18 09:30 Dose: 100 mls/hr Lactated Ringer's (Ringers, Lactated) 1,000 mls @ 0 mls/hr IV ASDIRECTED [facility] Last Admin: 01/10/18 08:17 Dose: 100 mls/hr Tranexamic Acid 970 mg/ Sodium (Chloride) 59.7 mls @ 238.8 mls/hr IV Q2H [facility] Stop: 01/10/18 11:14 Last Admin: 01/10/18 14:11 Dose: Not Given Acetaminophen 1,000 mg/ Premix 100 mls @ 400 mls/hr IV Q6H [facility] Stop: 01/11/18 05:44 Last Admin: 01/10/18 14:11 Dose: Not Given Insulin Detemir (Levemir) 17 unit SUBCUT BID [facility] Midazolam HCl (Versed 1 Mg/Ml) Confirm Administered Dose 2 mg .ROUTE .STK-MED ONE Stop: 01/10/18 06:46 Povidone Iodine (Betadine 10% Soln) Confirm Administered Dose 1 ml .ROUTE .STK- MED ONE Stop: 01/10/18 07:10 Last Admin: 01/10/18 10:19 Dose: 1 ml Propofol (Diprivan 20 Ml) Confirm Administered Dose 200 mg .ROUTE .STK-MED ONE Stop: 01/10/18 06:45
[2018-01-11] MEDS: Potassium Chloride 20 MEQ Tab.ER PO SCH ×3 (08:51→17:10)
[2018-01-11] MEDS: Sodium Chloride 0.9% 10 ML Syringe FLUSH SCH (08:51)
[2018-01-11] MEDS: Insulin Aspart 100 Units/ML 3 ML Pen SUBCUT SCH ×4 (08:52→21:19)
[2018-01-11] MEDS: Clopidogrel 75 MG Tab PO SCH (08:56)
[2018-01-11] MEDS: Insulin Detemir 100 Units/ML 3 ML Pen SUBCUT SCH ×2 (08:57→21:20)
[2018-01-11] MEDS: Hydrochlorothiazide 25 MG Tab PO SCH (08:57)
[2018-01-11] MEDS: Lisinopril 20 MG Tab PO SCH ×2 (08:58→20:43)
[2018-01-11] MEDS: Metoprolol Tartrate 25 MG Tab PO SCH (08:58)
[2018-01-11] MEDS: Cholestyramine/Sucrose Powder 4 GM Packet PO SCH (09:02)
[2018-01-11] MEDS: FLUTICASONE PROPIONATE IH SCH (09:06)
--- NOTE | 2018-01-11 10:12 | PCM.PN ---
- General Info Date of Service: 01/11/18 Functional Status: Reports: Pain Controlled, Tolerating Diet, Ambulating - Review of Systems General: Reports: Weakness, Fatigue Systems Review Comment:: No acute events overnight but this morning her blood pressure was noted to be in the 70s systolic. Morning blood pressure medications were held and she received a 500 mL bolus of normal saline. Blood pressure slowly improving since then. Knee pain has been well-controlled. She is requiring a very small amount of supplemental oxygen but does not feel short of breath. She feels very fatigued. - Patient Data Vitals - Most Recent: Last Vital Signs Temp 36.3 C 01/11/18 07:00 Pulse 55 L 01/11/18 07:58 Resp 18 01/11/18 07:58 BP 92/54 L 01/11/18 09:21 Pulse Ox 90 L 01/11/18 07:58 Weight - Most Recent: 94.801 kg I&O - Last 24 Hours: Intake & Output 01/10/18 01/11/18 01/11/18 22:59 06:59 14:59 Intake Total 1520 1397 1620 Output Total 650 Balance 9437 931 9300 Lab Results Last 24 Hours: Laboratory Results - last 24 hr 01/11/18 01/11/18 Range/Units 04:50 04:50 WBC 12.0 H (4.5-11.0) K/uL RBC 3.32 (3.30-5.50) M/uL Hgb 10.4 L D (12.0-15.0) g/dL Hct 31.7 L (36.0-48.0) % MCV 96 (80-98) fL MCH 31 (27-31) pg MCHC 33 (32-36) % Plt Count 223 (150-400) K/uL Neut % (Auto) 79 H (36-66) % Lymph % (Auto) 13 L (24-44) % [place] % (Auto) 8 H (2-6) % Eos % (Auto) 0 L (2-4) % Baso % (Auto) 0 (0-1) % Sodium 138 L (140-148) mmol/L Potassium 4.5 (3.6-5.2) mmol/L Chloride 105 (100-108) mmol/L Carbon Dioxide 29 (21-32) mmol/L Anion Gap 8.5 (5.0-14.0) mmol/L BUN 13 (7-18) mg/dL Creatinine 0.9 (0.6-1.0) mg/dL Est Cr Clr Drug Dosing 45.20 mL/min Estimated GFR (MDRD) > 60 (>60) Glucose 171 H (74-106) mg/dL Calcium 8.0 L (8.5-10.1) mg/dL Total Bilirubin 0.5 (0.2-1.0) mg/dL AST 11 L (15-37) U/L ALT 16 (12-78) U/L Alkaline Phosphatase 57 (46-116) U/L Total Protein 5.0 L (6.4-8.2) g/dL Albumin 2.5 L (3.4-5.0) g/dL Globulin 2.5 (2.3-3.5) g/dL Albumin/Globulin Ratio 1.0 L (1.2-2.2) Med Orders - Current: Current Medications Al Hydroxide/Mg Hydroxide (Mag-Al Plus) 30 ml PO Q4H PRN PRN Reason: Constipation Albuterol (Ventolin Hfa) 0 gm INH Q6H PRN PRN Reason: Wheezing Amlodipine Besylate (Norvasc) 10 mg PO BEDTIME [facility] Last Admin: 01/10/18 21:30 Dose: 10 mg Bisacodyl (Dulcolax) 10 mg PO DAILY PRN PRN Reason: Constipation Cholestyramine Resin (Cholestyramine Packet) 4 gm PO DAILY@1000 [facility] Last Admin: 01/11/18 09:02 Dose: 4 gm Clopidogrel Bisulfate (Plavix) 75 mg PO DAILY [facility] Last Admin: 01/11/18 08:56 Dose: 75 mg Diphenhydramine HCl (Benadryl) 25 mg IVPUSH Q4H PRN PRN Reason: Itching Docusate Sodium (Colace) 100 mg PO BID PRN PRN Reason: Constipation Hydrochlorothiazide (Hydrochlorothiazide) 25 mg PO DAILY [facility] Last Admin: 01/11/18 08:57 Dose: Not Given Lactated Ringer's (Ringers, Lactated) 1,000 mls @ 100 mls/hr IV ASDIRECTED [facility] Last Admin: 01/10/18 20:11 Dose: 100 mls/hr Acetaminophen 1,000 mg/ Premix 100 mls @ 400 mls/hr IV Q6H [facility] Stop: 01/11/18 10:14 Last Admin: 01/11/18 09:02 Dose: 400 mls/hr Insulin Aspart (Novolog) 0 unit SUBCUT QIDACANDBED [facility]; Protocol Last Admin: 01/11/18 08:52 Dose: 1 units Insulin Detemir (Levemir) 17 unit SUBCUT BID [facility] Last Admin: 01/11/18 08:57 Dose: 17 units Ketorolac Tromethamine (Toradol) 30 mg IVPUSH Q8H PRN PRN Reason: Pain Stop: 01/15/18 11:26 Lisinopril (Prinivil) 20 mg PO BID [facility] Last Admin: 01/11/18 08:58 Dose: Not Given Magnesium Hydroxide (Milk Of Magnesia) 30 ml PO BID PRN PRN Reason: Constipation Melatonin (Melatonin) 6 mg PO BEDTIME [facility] Last Admin: 01/10/18 21:31 Dose: 6 mg Metoprolol Tartrate (Lopressor) 25 mg PO BID [facility] Last Admin: 01/11/18 08:58 Dose: Not Given Morphine Sulfate (Morphine) 2 mg IVPUSH Q2H PRN PRN Reason: Pain Last Admin: 01/10/18 15:04 Dose: 2 mg Naloxone HCl (Narcan) 0.1 mg IVPUSH ONETIME PRN PRN Reason: Oversedation Nitroglycerin (Nitrostat) 0.4 mg SL Q5M PRN PRN Reason: Chest Pain Non-Formulary Medication (Fluticasone Propionate [Flovent Hfa 44 Mcg]) 2 puff IH DAILY [facility] Last Admin: 01/11/18 09:06 Dose: 2 puff [Glucosamine & (Chondroitin) 1 tab PO TID [facility] Last Admin: 01/11/18 08:53 Dose: Not Given Ondansetron HCl (Zofran) 8 mg IVPUSH Q4H PRN PRN Reason: Nausea/Vomiting Last Admin: 01/10/18 15:10 Dose: 8 mg Oxybutynin Chloride (Oxybutynin) 5 mg PO BEDTIME [facility] Last Admin: 01/10/18 21:30 Dose: 5 mg Potassium Chloride (Klor-Con M20) 20 meq PO TIDMEALS [facility] Last Admin: 01/11/18 08:51 Dose: 20 meq Scopolamine (Transderm-Scop) 1.5 mg TOP Q72H [facility] Stop: 01/13/18 07:00 Last Admin: 01/10/18 07:47 Dose: 1.5 mg Senna (Senna) 8.6 mg PO BID PRN PRN Reason: Constipation Simvastatin (Zocor) 20 mg PO BEDTIME [facility] Last Admin: 01/10/18 21:29 Dose: 20 mg Sodium Chloride (Saline Flush) 10 ml FLUSH DAILY [facility] Last Admin: 01/11/18 08:51 Dose: 10 ml Tramadol HCl (Ultram) 100 mg PO Q6H PRN PRN Reason: Pain Last Admin: 01/11/18 07:21 Dose: 100 mg Zolpidem Tartrate (Ambien) 5 mg PO BEDTIME PRN PRN Reason: Sleep Discontinued Medications Acetaminophen (Tylenol Extra Strength) 1,000 mg PO ONETIME ONE Stop: 01/10/18 08:01 Last Admin: 01/10/18 07:47 Dose: 1,000 mg Ropivacaine 49.25 ml/Ketorolac Tromethamine 30 mg/Epinephrine HCl 0.5 mg/ Clonidine HCl 80 mcg/ Sodium Chloride 48.45 ml 0 ml INJECT ONETIME ONE Stop: 01/10/18 09:01 Last Admin: 01/11/18 00:17 Dose: Not Given Fentanyl (Sublimaze) Confirm Administered Dose 100 mcg .ROUTE .STK-MED ONE Stop: 01/10/18 06:45 Fentanyl (Sublimaze) 100 mcg IVPUSH ONETIME ONE Stop: 01/10/18 11:40 Last Admin: 01/10/18 11:50 Dose: 100 mcg Gabapentin (Neurontin) 300 mg PO ONETIME ONE Stop: 01/10/18 08:01 Last Admin: 01/10/18 07:47 Dose: 300 mg Gentamicin Sulfate (Gentamicin) Confirm Administered Dose 240 mg .ROUTE .STK- MED ONE Stop: 01/10/18 07:10 Last Admin: 01/10/18 10:18 Dose: 240 mg Cefazolin Sodium/Dextrose 2 gm (/ Premix) 50 mls @ 100 mls/hr IV ONETIME ONE Stop: 01/10/18 08:29 Last Admin: 01/10/18 09:30 Dose: 100 mls/hr Lactated Ringer's (Ringers, Lactated) 1,000 mls @ 0 mls/hr IV ASDIRECTED [facility] Last Admin: 01/10/18 08:17 Dose: 100 mls/hr Tranexamic Acid 970 mg/ Sodium (Chloride) 59.7 mls @ 238.8 mls/hr IV Q2H [facility] Stop: 01/10/18 11:14 Last Admin: 01/10/18 14:11 Dose: Not Given Acetaminophen 1,000 mg/ Premix 100 mls @ 400 mls/hr IV Q6H [facility] Stop: 01/11/18 05:44 Last Admin: 01/10/18 14:11 Dose: Not Given Sodium Chloride (Normal Saline) 500 mls @ 500 mls/hr IV BOLUS ONE Stop: 01/11/18 08:59 Last Admin: 01/11/18 08:00 Dose: 500 mls/hr Insulin Detemir (Levemir) 17 unit SUBCUT BID [facility] Ketamine HCl (Ketalar) 27 mg IV ASDIRECTED [facility] Midazolam HCl (Versed 1 Mg/Ml) Confirm Administered Dose 2 mg .ROUTE .STK-MED ONE Stop: 01/10/18 06:46 Povidone Iodine (Betadine 10% Soln) Confirm Administered Dose 1 ml .ROUTE .STK- MED ONE Stop: 01/10/18 07:10 Last Admin: 01/10/18 10:19 Dose: 1 ml Propofol (Diprivan 20 Ml) Confirm Administered Dose 200 mg .ROUTE .STK-MED ONE Stop: 01/10/18 06:45 - Exam Quality Assessment: Supplemental Oxygen General: Alert, Oriented, Cooperative, No Acute Distress Neck: Supple Lungs: Clear to Auscultation, Normal Respiratory Effort Cardiovascular: Regular Rate, Regular Rhythm GI/Abdominal Exam: No Distention Extremities: No Pedal Edema, Other (left knee wrapped in SAMEER) Psy/Mental Status: Alert, Normal Affect - Problem List & Annotations (1) Primary osteoarthritis of left knee SNOMED Code(s): 281622332266589, 166813510929362 Code(s): M17.12 - UNILATERAL PRIMARY OSTEOARTHRITIS, LEFT KNEE Status: Chronic Current Visit: No (2) Diabetes mellitus, insulin dependent (IDDM), controlled SNOMED Code(s): 95519512 Code(s): E11.9 - TYPE 2 DIABETES MELLITUS WITHOUT COMPLICATIONS; Z79.4 - 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 Status: Chronic Current Visit: No - Problem List Review Problem List Initiated/Reviewed/Updated: Yes - My Orders Last 24 Hours: My Active Orders 01/10/18 14:51 Communication Order [RC] PRN Communication Order [RC] PRN Diabetes Education [RC] Click to Edit Notify Provider [RC] PRN 01/10/18 17:00 Insulin Aspart [NovoLOG] See Protocol SUBCUT QIDACANDBED 01/11/18 11:30 GLUCOSE POC LAB TO COLLECT [POC] QIDACANDBED 01/11/18 16:30 GLUCOSE POC LAB TO COLLECT [POC] QIDACANDBED 01/11/18 21:00 GLUCOSE POC LAB TO COLLECT [POC] QIDACANDBED 01/12/18 07:30 GLUCOSE POC LAB TO COLLECT [POC] QIDACANDBED 01/12/18 11:30 GLUCOSE POC LAB TO COLLECT [POC] QIDACANDBED 01/12/18 16:30 GLUCOSE POC LAB TO COLLECT [POC] QIDACANDBED 01/12/18 21:00 GLUCOSE POC LAB TO COLLECT [POC] QIDACANDBED 01/13/18 07:30 GLUCOSE POC LAB TO COLLECT [POC] QIDACANDBED 01/13/18 11:30 GLUCOSE POC LAB TO COLLECT [POC] QIDACANDBED 01/13/18 16:30 GLUCOSE POC LAB TO COLLECT [POC] QIDACANDBED 01/13/18 21:00 GLUCOSE POC LAB TO COLLECT [POC] QIDACANDBED 01/14/18 07:30 GLUCOSE POC LAB TO COLLECT [POC] QIDACANDBED 01/14/18 11:30 GLUCOSE POC LAB TO COLLECT [POC] QIDACANDBED 01/14/18 16:30 GLUCOSE POC LAB TO COLLECT [POC] QIDACANDBED 01/14/18 21:00 GLUCOSE POC LAB TO COLLECT [POC] QIDACANDBED 01/15/18 07:30 GLUCOSE POC LAB TO COLLECT [POC] QIDACANDBED 01/15/18 11:30 GLUCOSE POC LAB TO COLLECT [POC] QIDACANDBED 01/15/18 16:30 GLUCOSE POC LAB TO COLLECT [POC] QIDACANDBED 01/15/18 21:00 GLUCOSE POC LAB TO COLLECT [POC] QIDACANDBED - Plan Plan:: ASSESSMENT AND PLAN Primary osteoarthritis of the left knee - status post left total knee arthroplasty. Stable and doing well postoperatively. -Postop cares per orthopedic team Insulin dependent diabetes mellitus, controlled - blood sugars have been well- controlled. -Continue Januvia -Substitute Levemir twice daily for Tresiba -Low-dose sliding scale insulin Essential hypertension - blood pressure was quite low this morning and morning medications were held. Pressures are responding to a fluid bolus. -Hold home medications this morning, reassess later in the day Disposition - patient will remain in the hospital overnight for additional monitoring of her blood pressure after significant episode of hypotension this morning. I would anticipate she will be ready for discharge tomorrow. Artie Pedro M.D.
[2018-01-11] MEDS: Ondansetron 4 MG/2 ML SDV IVPUSH PRN (17:35)
[2018-01-11] MEDS: Ondansetron 4 MG Tab.DIS PO PRN (17:58)
[2018-01-11] MEDS: Acetaminophen/HYDROcodone 325-5 MG Tab PO PRN (20:41)
[2018-01-11] MEDS: Simvastatin 20 MG Tab PO SCH (20:43)
[2018-01-11] MEDS: amLODIPine 10 MG Tab PO SCH (20:44)
[2018-01-11] MEDS: Oxybutynin 5 MG Tab PO SCH (20:44)
[2018-01-11] MEDS: Melatonin 3 MG Tab PO SCH (20:45)
[2018-01-11] MEDS ORDERED: Insulin Detemir 100 Units/ML 3 ML Pen SUBCUT SCH (21:00)
[2018-01-12] MEDS: traMADol 50 MG Tab PO PRN ×3 (01:12→18:11)
[2018-01-12] MEDS: Acetaminophen/HYDROcodone 325-5 MG Tab PO PRN (05:40)
[2018-01-12] MEDS: Ondansetron 4 MG Tab.DIS PO PRN ×2 (07:13→12:05)
[2018-01-12] MEDS: Insulin Aspart 100 Units/ML 3 ML Pen SUBCUT SCH ×5 (08:30→20:47)
[2018-01-12] MEDS: Insulin Detemir 100 Units/ML 3 ML Pen SUBCUT SCH ×2 (08:30→20:46)
[2018-01-12] MEDS: FLUTICASONE PROPIONATE IH SCH (09:50)
[2018-01-12] MEDS: Clopidogrel 75 MG Tab PO SCH (09:51)
[2018-01-12] MEDS: Lisinopril 20 MG Tab PO SCH ×2 (09:52→20:43)
[2018-01-12] MEDS: Cholestyramine/Sucrose Powder 4 GM Packet PO SCH (09:53)
[2018-01-12] MEDS: Sodium Chloride 0.9% 10 ML Syringe FLUSH SCH (10:47)
[2018-01-12] MEDS: Potassium Chloride 20 MEQ Tab.ER PO SCH ×3 (10:49→16:48)
--- NOTE | 2018-01-12 11:57 | PCM.PN ---
- General Info Date of Service: 01/12/18 Functional Status: Reports: Pain Controlled. Denies: Tolerating Diet - Review of Systems General: Reports: Fatigue. Denies: Fever Gastrointestinal: Reports: Nausea Musculoskeletal: Reports: Leg Pain Systems Review Comment:: Patient had difficulty with nausea and vomiting overnight. One episode occurred after taking potassium and the other after taking pain pills on an empty stomach. She feels a little better today but still feels very tired. Pain moderately well controlled at this time. She has been ambulating. She is off supplemental oxygen. No bowel movement. - Patient Data Vitals - Most Recent: Last Vital Signs Temp 36.5 C 01/12/18 11:31 Pulse 80 01/12/18 11:31 Resp 16 01/12/18 11:31 BP 149/60 H 01/12/18 11:31 Pulse Ox 90 L 01/12/18 11:31 Weight - Most Recent: 94.801 kg I&O - Last 24 Hours: Intake & Output 01/11/18 01/12/18 01/12/18 22:59 06:59 14:59 Intake Total 600 680 Output Total 275 500 Balance 325 180 Lab Results Last 24 Hours: Laboratory Results - last 24 hr 01/12/18 01/12/18 Range/Units 05:34 05:34 WBC 13.4 H (4.5-11.0) K/uL RBC 3.40 (3.30-5.50) M/uL Hgb 10.6 L (12.0-15.0) g/dL Hct 31.5 L (36.0-48.0) % MCV 93 (80-98) fL MCH 31 (27-31) pg MCHC 34 (32-36) % Plt Count 231 (150-400) K/uL Neut % (Auto) 86 H (36-66) % Lymph % (Auto) 7 L (24-44) % [place] % (Auto) 8 H (2-6) % Eos % (Auto) 0 L (2-4) % Baso % (Auto) 0 (0-1) % Sodium 130 L (140-148) mmol/L Potassium 5.1 (3.6-5.2) mmol/L Chloride 97 L (100-108) mmol/L Carbon Dioxide 25 (21-32) mmol/L Anion Gap 13.1 (5.0-14.0) mmol/L BUN 11 (7-18) mg/dL Creatinine 0.8 (0.6-1.0) mg/dL Est Cr Clr Drug Dosing 50.85 mL/min Estimated GFR (MDRD) > 60 (>60) Glucose 277 H (74-106) mg/dL Calcium 7.9 L (8.5-10.1) mg/dL Total Bilirubin 0.7 (0.2-1.0) mg/dL AST 14 L (15-37) U/L ALT 17 (12-78) U/L Alkaline Phosphatase 71 (46-116) U/L Total Protein 5.7 L (6.4-8.2) g/dL Albumin 2.8 L (3.4-5.0) g/dL Globulin 2.9 (2.3-3.5) g/dL Albumin/Globulin Ratio 1.0 L (1.2-2.2) Med Orders - Current: Current Medications Hydrocodone Bitart/Acetaminophen ([place] 325-5 Mg) 1 tab PO Q8H PRN PRN Reason: Pain Last Admin: 01/12/18 05:40 Dose: 1 tab Al Hydroxide/Mg Hydroxide (Mag-Al Plus) 30 ml PO Q4H PRN PRN Reason: Constipation Albuterol (Ventolin Hfa) 0 gm INH Q6H PRN PRN Reason: Wheezing Amlodipine Besylate (Norvasc) 10 mg PO BEDTIME [facility] Last Admin: 01/11/18 20:44 Dose: 10 mg Bisacodyl (Dulcolax) 10 mg PO DAILY PRN PRN Reason: Constipation Cholestyramine Resin (Cholestyramine Packet) 4 gm PO DAILY@1000 [facility] Last Admin: 01/12/18 09:53 Dose: 4 gm Clopidogrel Bisulfate (Plavix) 75 mg PO DAILY [facility] Last Admin: 01/12/18 09:51 Dose: 75 mg Hydrochlorothiazide (Hydrochlorothiazide) 25 mg PO DAILY [facility] Last Admin: 01/11/18 08:57 Dose: Not Given Insulin Aspart (Novolog) 0 unit SUBCUT QIDACANDBED [facility]; Protocol Last Admin: 01/12/18 08:30 Dose: 3 units Insulin Detemir (Levemir) 17 unit SUBCUT BID [facility] Last Admin: 01/12/18 08:30 Dose: 17 units Lisinopril (Prinivil) 20 mg PO BID [facility] Last Admin: 01/12/18 09:52 Dose: 20 mg Magnesium Hydroxide (Milk Of Magnesia) 30 ml PO BID PRN PRN Reason: Constipation Melatonin (Melatonin) 6 mg PO BEDTIME [facility] Last Admin: 01/11/18 20:45 Dose: 6 mg Metoprolol Tartrate (Lopressor) 25 mg PO BID [facility] Last Admin: 01/11/18 08:58 Dose: Not Given Naloxone HCl (Narcan) 0.1 mg IVPUSH ONETIME PRN PRN Reason: Oversedation Nitroglycerin (Nitrostat) 0.4 mg SL Q5M PRN PRN Reason: Chest Pain Non-Formulary Medication (Fluticasone Propionate [Flovent Hfa 44 Mcg]) 2 puff IH DAILY [facility] Last Admin: 01/12/18 09:50 Dose: 2 puff [Glucosamine & (Chondroitin) 1 tab PO TID [facility] Last Admin: 01/12/18 09:51 Dose: Not Given Ondansetron HCl (Zofran Odt) 4 mg PO Q4H PRN PRN Reason: Nausea/Vomiting Last Admin: 01/12/18 07:13 Dose: 4 mg Oxybutynin Chloride (Oxybutynin) 5 mg PO BEDTIME [facility] Last Admin: 01/11/18 20:44 Dose: 5 mg Potassium Chloride (Klor-Con M20) 20 meq PO TIDMEALS [facility] Last Admin: 01/12/18 10:49 Dose: Not Given Scopolamine (Transderm-Scop) 1.5 mg TOP Q72H [facility] Stop: 01/13/18 07:00 Last Admin: 01/10/18 07:47 Dose: 1.5 mg Senna/Docusate Sodium (Senna Plus) 1 tab PO BID [facility] Simvastatin (Zocor) 20 mg PO BEDTIME [facility] Last Admin: 01/11/18 20:43 Dose: 20 mg Sodium Chloride (Saline Flush) 10 ml FLUSH DAILY [facility] Last Admin: 01/12/18 10:47 Dose: Not Given Tramadol HCl (Ultram) 100 mg PO Q6H PRN PRN Reason: Pain Last Admin: 01/12/18 01:12 Dose: 100 mg Zolpidem Tartrate (Ambien) 5 mg PO BEDTIME PRN PRN Reason: Sleep Discontinued Medications Acetaminophen (Tylenol Extra Strength) 1,000 mg PO ONETIME ONE Stop: 01/10/18 08:01 Last Admin: 01/10/18 07:47 Dose: 1,000 mg Ropivacaine 49.25 ml/Ketorolac Tromethamine 30 mg/Epinephrine HCl 0.5 mg/ Clonidine HCl 80 mcg/ Sodium Chloride 48.45 ml 0 ml INJECT ONETIME ONE Stop: 01/10/18 09:01 Last Admin: 01/11/18 00:17 Dose: Not Given Diphenhydramine HCl (Benadryl) 25 mg IVPUSH Q4H PRN PRN Reason: Itching Docusate Sodium (Colace) 100 mg PO BID PRN PRN Reason: Constipation Fentanyl (Sublimaze) Confirm Administered Dose 100 mcg .ROUTE .STK-MED ONE Stop: 01/10/18 06:45 Fentanyl (Sublimaze) 100 mcg IVPUSH ONETIME ONE Stop: 01/10/18 11:40 Last Admin: 01/10/18 11:50 Dose: 100 mcg Gabapentin (Neurontin) 300 mg PO ONETIME ONE Stop: 01/10/18 08:01 Last Admin: 01/10/18 07:47 Dose: 300 mg Gentamicin Sulfate (Gentamicin) Confirm Administered Dose 240 mg .ROUTE .STK- MED ONE Stop: 01/10/18 07:10 Last Admin: 01/10/18 10:18 Dose: 240 mg Cefazolin Sodium/Dextrose 2 gm (/ Premix) 50 mls @ 100 mls/hr IV ONETIME ONE Stop: 01/10/18 08:29 Last Admin: 01/10/18 09:30 Dose: 100 mls/hr Lactated Ringer's (Ringers, Lactated) 1,000 mls @ 0 mls/hr IV ASDIRECTED [facility] Last Admin: 01/10/18 08:17 Dose: 100 mls/hr Tranexamic Acid 970 mg/ Sodium (Chloride) 59.7 mls @ 238.8 mls/hr IV Q2H [facility] Stop: 01/10/18 11:14 Last Admin: 01/10/18 14:11 Dose: Not Given Acetaminophen 1,000 mg/ Premix 100 mls @ 400 mls/hr IV Q6H [facility] Stop: 01/11/18 05:44 Last Admin: 01/10/18 14:11 Dose: Not Given Lactated Ringer's (Ringers, Lactated) 1,000 mls @ 100 mls/hr IV ASDIRECTED [facility] Last Admin: 01/10/18 20:11 Dose: 100 mls/hr Acetaminophen 1,000 mg/ Premix 100 mls @ 400 mls/hr IV Q6H [facility] Stop: 01/11/18 10:14 Last Admin: 01/11/18 09:02 Dose: 400 mls/hr Sodium Chloride (Normal Saline) 500 mls @ 500 mls/hr IV BOLUS ONE Stop: 01/11/18 08:59 Last Admin: 01/11/18 08:00 Dose: 500 mls/hr Insulin Detemir (Levemir) 17 unit SUBCUT BID [facility] Ketamine HCl (Ketalar) 27 mg IV ASDIRECTED [facility] Ketorolac Tromethamine (Toradol) 30 mg IVPUSH Q8H PRN PRN Reason: Pain Stop: 01/15/18 11:26 Midazolam HCl (Versed 1 Mg/Ml) Confirm Administered Dose 2 mg .ROUTE .STK-MED ONE Stop: 01/10/18 06:46 Morphine Sulfate (Morphine) 2 mg IVPUSH Q2H PRN PRN Reason: Pain Last Admin: 01/10/18 15:04 Dose: 2 mg Ondansetron HCl (Zofran) 8 mg IVPUSH Q4H PRN PRN Reason: Nausea/Vomiting Last Admin: 01/10/18 15:10 Dose: 8 mg Povidone Iodine (Betadine 10% Soln) Confirm Administered Dose 1 ml .ROUTE .STK- MED ONE Stop: 01/10/18 07:10 Last Admin: 01/10/18 10:19 Dose: 1 ml Propofol (Diprivan 20 Ml) Confirm Administered Dose 200 mg .ROUTE .STK-MED ONE Stop: 01/10/18 06:45 Senna (Senna) 8.6 mg PO BID PRN PRN Reason: Constipation - Exam Quality Assessment: No: Supplemental Oxygen General: Alert, Oriented, Cooperative, No Acute Distress Neck: Supple Lungs: Normal Respiratory Effort GI/Abdominal Exam: No Distention Extremities: No Pedal Edema, Other (dressing left knee is intact with small amount of dry blood on inferior portion or dressing. ). 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 Status: Chronic Current Visit: No - Problem List Review Problem List Initiated/Reviewed/Updated: Yes - My Orders Last 24 Hours: My Active Orders 01/12/18 16:30 GLUCOSE POC LAB TO COLLECT [POC] QIDACANDBED 01/12/18 21:00 GLUCOSE POC LAB TO COLLECT [POC] QIDACANDBED Docusate Sodium/Sennosides [Senna Plus] 1 tab PO BID 01/13/18 05:00 BASIC METABOLIC PANEL,BMP [CHEM] Timed CBC W/O DIFF,HEMOGRAM [HEME] Timed (1) 01/13/18 07:30 GLUCOSE POC LAB TO COLLECT [POC] QIDACANDBED 01/13/18 11:30 GLUCOSE POC LAB TO COLLECT [POC] QIDACANDBED 01/13/18 16:30 GLUCOSE POC LAB TO COLLECT [POC] QIDACANDBED 01/13/18 21:00 GLUCOSE POC LAB TO COLLECT [POC] QIDACANDBED 01/14/18 07:30 GLUCOSE POC LAB TO COLLECT [POC] QIDACANDBED 01/14/18 11:30 GLUCOSE POC LAB TO COLLECT [POC] QIDACANDBED 01/14/18 16:30 GLUCOSE POC LAB TO COLLECT [POC] QIDACANDBED 01/14/18 21:00 GLUCOSE POC LAB TO COLLECT [POC] QIDACANDBED 01/15/18 07:30 GLUCOSE POC LAB TO COLLECT [POC] QIDACANDBED 01/15/18 11:30 GLUCOSE POC LAB TO COLLECT [POC] QIDACANDBED 01/15/18 16:30 GLUCOSE POC LAB TO COLLECT [POC] QIDACANDBED 01/15/18 21:00 GLUCOSE POC LAB TO COLLECT [POC] QIDACANDBED - Plan Plan:: ASSESSMENT AND PLAN Primary osteoarthritis of the left knee - status post left total knee arthroplasty. Stable postoperatively but having some difficulty with nausea related to pain medications. -Postop cares per orthopedic team Insulin dependent diabetes mellitus, controlled - blood sugars have been suboptimally controlled. -Continue Januvia -Substitute Levemir twice daily for Tresiba -Medium-dose sliding scale insulin Essential hypertension - blood pressure was normal this morning and blood pressure medications remain on hold, at least for the morning. -Hold home medications this morning, reassess later in the day Disposition - patient will remain in the hospital overnight for additional monitoring of her blood pressure as well as management of her persistent nausea. Artie Pedro M.D.
[2018-01-12] MEDS ORDERED: Acetaminophen 325 MG Tab PO PRN (14:41)
[2018-01-12] MEDS: Melatonin 3 MG Tab PO SCH (20:42)
[2018-01-12] MEDS: Oxybutynin 5 MG Tab PO SCH (20:43)
[2018-01-12] MEDS: amLODIPine 10 MG Tab PO SCH (20:43)
[2018-01-12] MEDS: Metoprolol Tartrate 25 MG Tab PO SCH (20:43)
[2018-01-12] MEDS: Simvastatin 20 MG Tab PO SCH (20:43)
[2018-01-13] MEDS: traMADol 50 MG Tab PO PRN ×2 (01:11→09:15)
[2018-01-13 07:24] VITALS: BP 132/63
[2018-01-13] MEDS: Insulin Aspart 100 Units/ML 3 ML Pen SUBCUT SCH ×2 (07:26→11:45)
[2018-01-13] MEDS: Potassium Chloride 20 MEQ Tab.ER PO SCH (07:27)
[2018-01-13] MEDS: Lisinopril 20 MG Tab PO SCH (08:21)
[2018-01-13] MEDS: Clopidogrel 75 MG Tab PO SCH (08:21)
[2018-01-13] MEDS: Metoprolol Tartrate 25 MG Tab PO SCH (08:22)
[2018-01-13] MEDS: Hydrochlorothiazide 25 MG Tab PO SCH (08:23)
[2018-01-13] MEDS: FLUTICASONE PROPIONATE IH SCH (08:24)
[2018-01-13] MEDS: Insulin Detemir 100 Units/ML 3 ML Pen SUBCUT SCH (08:25)
[2018-01-13] MEDS: Ondansetron 4 MG Tab.DIS PO PRN (09:15)
--- NOTE | 2018-01-13 10:53 | PCM.DCSUM1 ---
Discharge Summary - Hospital Course Brief History: The patient was seen preoperatively in the clinic. She was admitted for left total knee arthroplasty on 01/10/2018. The procedure was performed without incident and she was admitted for postoperative management. 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 OT Reason for Consult: Strengthening This query below is only for informational purposes and is not editable. PT Evaluation and Treatment [CONS] Routine Please Evaluate and Treat. PT Reason for Consult: Strengthening This query below is only for informational purposes and is not editable. Respiratory Care Assess and Treatment [CONS] Routine Comment: Physician Instructions: Post-op Pneumonia Prevention Hospital Course: Olga Lidia was admitted January 10 after a left total knee arthroplasty. She had an uneventful surgery. Postoperative period was complicated by mild hypoxia and some nausea with mild vomiting. The morning after admission she had an episode of hypotension which did respond to an IV fluid bolus and holding her morning medications. Blood pressure did trend up after this time. Throughout the day after admission the patient had some difficulty with nausea and intermittent vomiting. Throughout the second day after admission she had a upward trend in her blood pressures with normalization. Nausea persisted but did not resolve. Vomiting seem to have resolved by the second day. The patient was still having difficulty with pain and ambulation and remain hospitalized. By the morning of discharge she has had significant improvement in her pain control. Nausea has improved but not quite resolved. Appetite is slowly improving. Blood pressures have been normal and usual home medications have been reinstituted. She is still fatigued but otherwise doing well and stable after her surgery. She has done well with physical therapy and has been able to navigate a couple of stairs. She is safe for discharge at this time and will be discharged home with her and son. Follow-up and outpatient physical therapy or scheduled. - Patient Instructions Diet: Diabetic Diet Activity: Apply Ice, As Tolerated Driving: Do Not Drive Showering/Bathing: May Shower, No Tub Bathing/Swimming Wound/Incision Care: Keep Operative Site/Wound Site Clean and Dry, Change Dressing Daily Notify Provider of: Fever, Increased Pain, Swelling and Redness, Drainage, Nausea and/or Vomiting Other/Special Instructions: 1. You were in the hospital for left total knee arthroplasty. After you return home you may remove the dressing from your knee and shower. Please do not bathe or submerge the knee until the incision is fully healed and the kamryn have been removed. You should change the dressing daily to keep the knee incision clean and dry. Pain control will be with acetaminophen for mild pain and tramadol as needed for moderate or severe pain. 2. Please seek medical attention if you have severe pain not controlled by medications available at home or if you develop fever greater than 101. - Discharge Plan Prescriptions/Med Rec: Ondansetron [Zofran ODT] 4 mg PO Q4H PRN #15 tab.dis PRN Reason: Nausea/Vomiting traMADol [Ultram] 100 mg PO Q6H PRN #120 tablet PRN Reason: Pain Home Medications: Home Meds Albuterol Sulfate [Proair Hfa] 8.5 gm IH Q6H PRN 06/03/14 [History] Calcium Polycarbophil [Fibercon] 625 mg PO DAILY 06/03/14 [History] Clopidogrel Bisulfate [Clopidogrel] 75 mg PO DAILY 06/03/14 [History] Fluticasone Propionate [Flovent HFA 44 mcg] 2 puff IH DAILY 06/03/14 [History] Gluc 2KCl/Chondr/Alvin Hy/Hy Ac [Glucosamine & Chondroitin Cap] 1 tab PO TID 11/15 [History] Hydrochlorothiazide 25 mg PO DAILY 06/03/14 [History] Lactobacillus Acidophilus [Acidophilus] 1 each PO DAILY 06/03/14 [History] Lisinopril [Zestril] 20 mg PO BID 06/03/14 [History] Metoprolol Tartrate 25 mg PO BID 06/03/14 [History] Potassium Chloride 20 meq PO TID 06/03/14 [History] Simvastatin [Zocor] 20 mg PO BEDTIME 06/03/14 [History] amLODIPine Besylate [Amlodipine Besylate] 10 mg PO BEDTIME 06/03/14 [History] Calcium Carbonate/Vitamin D2 [Calcium with Vit D] 1 tab PO BID 11/10/14 [History ] Nitroglycerin [Nitrostat] 0.4 mg SL Q5M PRN 11/10/14 [History] Melatonin 5 mg PO BEDTIME 01/07/16 [History] Oxybutynin 5 mg PO BEDTIME 01/11/16 [History] Cholestyramine/Aspartame [Cholestyramine Light Powder] 4 gm PO DAILY 11/27/17 [ History] Insulin Degludec [Tresiba Flextouch U-200] 34 unit SQ DAILY 11/27/17 [History] SitaGLIPtin [Januvia] 100 mg PO DAILY 11/27/17 [History] Albuterol [IJD: Albuterol HFA] 0 gm INH Q6H PRN inhaler 01/11/18 [Rx] traMADol [Ultram] 100 mg PO Q6H PRN #120 tablet 01/11/18 [Rx] Ondansetron [Zofran ODT] 4 mg PO Q4H PRN #15 tab.dis 01/13/18 [Rx] Patient Handouts: Total Knee Replacement, Care After, [id number] Referrals: Reg Ochoa, MISSY [Physical Therapist] - 01/15/18 12:00 pm Holly Dupree RN [Registered Nurse] - 02/08/18 9:30 am Nick Ledezma DO [Physician] - 01/25/18 1:15 pm - Discharge Summary/Plan Comment DC Time >30 min.: No (25) - Patient Data Vitals - Most Recent: Last Vital Signs Temp 37.1 C 01/13/18 07:00 Pulse 80 01/13/18 08:22 Resp 18 01/13/18 07:00 BP 132/63 01/13/18 08:22 Pulse Ox 90 L 01/13/18 07:00 Weight - Most Recent: 94.801 kg I&O - Last 24 hours: Intake & Output 01/12/18 01/13/18 01/13/18 22:59 06:59 14:59 Intake Total 700 500 400 Output Total 500 1500 Balance 200 -1000 400 Lab Results - Last 24 hrs: Laboratory Results - last 24 hr 01/13/18 01/13/18 Range/Units 05:30 05:30 WBC 13.8 H (4.5-11.0) K/uL RBC 2.95 L (3.30-5.50) M/uL Hgb 9.0 L (12.0-15.0) g/dL Hct 27.3 L (36.0-48.0) % MCV 93 (80-98) fL MCH 31 (27-31) pg MCHC 33 (32-36) % Plt Count 246 (150-400) K/uL Neut % (Auto) 83 H (36-66) % Lymph % (Auto) 7 L (24-44) % Holmes % (Auto) 10 H (2-6) % Eos % (Auto) 0 L (2-4) % Baso % (Auto) 0 (0-1) % Sodium 131 L (140-148) mmol/L Potassium 4.8 (3.6-5.2) mmol/L Chloride 97 L (100-108) mmol/L Carbon Dioxide 28 (21-32) mmol/L Anion Gap 10.8 (5.0-14.0) mmol/L BUN 10 (7-18) mg/dL Creatinine 0.8 (0.6-1.0) mg/dL Est Cr Clr Drug Dosing 50.85 mL/min Estimated GFR (MDRD) > 60 (>60) Glucose 165 H (74-106) mg/dL Calcium 8.0 L (8.5-10.1) mg/dL Total Bilirubin 0.6 (0.2-1.0) mg/dL AST 14 L (15-37) U/L ALT 15 (12-78) U/L Alkaline Phosphatase 63 (46-116) U/L Total Protein 5.4 L (6.4-8.2) g/dL Albumin 2.5 L (3.4-5.0) g/dL Globulin 2.9 (2.3-3.5) g/dL Albumin/Globulin Ratio 0.9 L (1.2-2.2) Med Orders - Current: Current Medications Acetaminophen (Tylenol) 650 mg PO Q4H PRN PRN Reason: Pain/Fever Last Admin: 01/13/18 09:15 Dose: 650 mg Al Hydroxide/Mg Hydroxide (Mag-Al Plus) 30 ml PO Q4H PRN PRN Reason: Constipation Albuterol (Ventolin Hfa) 0 gm INH Q6H PRN PRN Reason: Wheezing Amlodipine Besylate (Norvasc) 10 mg PO BEDTIME [facility] Last Admin: 01/12/18 20:43 Dose: 10 mg Bisacodyl (Dulcolax) 10 mg PO DAILY PRN PRN Reason: Constipation Last Admin: 01/12/18 16:48 Dose: 10 mg Cholestyramine Resin (Cholestyramine Packet) 4 gm PO DAILY@1000 [facility] Last Admin: 01/12/18 09:53 Dose: 4 gm Clopidogrel Bisulfate (Plavix) 75 mg PO DAILY [facility] Last Admin: 01/13/18 08:21 Dose: 75 mg Hydrochlorothiazide (Hydrochlorothiazide) 25 mg PO DAILY [facility] Last Admin: 01/13/18 08:23 Dose: 25 mg Insulin Aspart (Novolog) 0 unit SUBCUT QIDACANDBED [facility]; Protocol Last Admin: 01/13/18 07:26 Dose: 2 units Insulin Detemir (Levemir) 17 unit SUBCUT BID [facility] Last Admin: 01/13/18 08:25 Dose: 17 units Lisinopril (Prinivil) 20 mg PO BID [facility] Last Admin: 01/13/18 08:21 Dose: 20 mg Magnesium Hydroxide (Milk Of Magnesia) 30 ml PO BID PRN PRN Reason: Constipation Melatonin (Melatonin) 6 mg PO BEDTIME [facility] Last Admin: 01/12/18 20:42 Dose: 6 mg Metoprolol Tartrate (Lopressor) 25 mg PO BID [facility] Last Admin: 01/13/18 08:22 Dose: 25 mg Naloxone HCl (Narcan) 0.1 mg IVPUSH ONETIME PRN PRN Reason: Oversedation Nitroglycerin (Nitrostat) 0.4 mg SL Q5M PRN PRN Reason: Chest Pain Non-Formulary Medication (Fluticasone Propionate [Flovent Hfa 44 Mcg]) 2 puff IH DAILY [facility] Last Admin: 01/13/18 08:24 Dose: 2 puff [Glucosamine & (Chondroitin) 1 tab PO TID [facility] Last Admin: 01/13/18 08:23 Dose: Not Given Ondansetron HCl (Zofran Odt) 4 mg PO Q4H PRN PRN Reason: Nausea/Vomiting Last Admin: 01/13/18 09:15 Dose: 4 mg Oxybutynin Chloride (Oxybutynin) 5 mg PO BEDTIME [facility] Last Admin: 01/12/18 20:43 Dose: 5 mg Senna/Docusate Sodium (Senna Plus) 1 tab PO BID [facility] Last Admin: 01/13/18 08:22 Dose: 1 tab Simvastatin (Zocor) 20 mg PO BEDTIME [facility] Last Admin: 01/12/18 20:43 Dose: 20 mg Sodium Chloride (Saline Flush) 10 ml FLUSH DAILY [facility] Last Admin: 01/12/18 10:47 Dose: Not Given Tramadol HCl (Ultram) 100 mg PO Q6H PRN PRN Reason: Pain Last Admin: 01/13/18 09:15 Dose: 100 mg Zolpidem Tartrate (Ambien) 5 mg PO BEDTIME PRN PRN Reason: Sleep Discontinued Medications Acetaminophen (Tylenol Extra Strength) 1,000 mg PO ONETIME ONE Stop: 01/10/18 08:01 Last Admin: 01/10/18 07:47 Dose: 1,000 mg Hydrocodone Bitart/Acetaminophen ([place] 325-5 Mg) 1 tab PO Q8H PRN PRN Reason: Pain Last Admin: 01/12/18 05:40 Dose: 1 tab Ropivacaine 49.25 ml/Ketorolac Tromethamine 30 mg/Epinephrine HCl 0.5 mg/ Clonidine HCl 80 mcg/ Sodium Chloride 48.45 ml 0 ml INJECT ONETIME ONE Stop: 01/10/18 09:01 Last Admin: 01/11/18 00:17 Dose: Not Given Diphenhydramine HCl (Benadryl) 25 mg IVPUSH Q4H PRN PRN Reason: Itching Docusate Sodium (Colace) 100 mg PO BID PRN PRN Reason: Constipation Fentanyl (Sublimaze) Confirm Administered Dose 100 mcg .ROUTE .STK-MED ONE Stop: 01/10/18 06:45 Fentanyl (Sublimaze) 100 mcg IVPUSH ONETIME ONE Stop: 01/10/18 11:40 Last Admin: 01/10/18 11:50 Dose: 100 mcg Gabapentin (Neurontin) 300 mg PO ONETIME ONE Stop: 01/10/18 08:01 Last Admin: 01/10/18 07:47 Dose: 300 mg Gentamicin Sulfate (Gentamicin) Confirm Administered Dose 240 mg .ROUTE .STK- MED ONE Stop: 01/10/18 07:10 Last Admin: 01/10/18 10:18 Dose: 240 mg Cefazolin Sodium/Dextrose 2 gm (/ Premix) 50 mls @ 100 mls/hr IV ONETIME ONE Stop: 01/10/18 08:29 Last Admin: 01/10/18 09:30 Dose: 100 mls/hr Lactated Ringer's (Ringers, Lactated) 1,000 mls @ 0 mls/hr IV ASDIRECTED [facility] Last Admin: 01/10/18 08:17 Dose: 100 mls/hr Tranexamic Acid 970 mg/ Sodium (Chloride) 59.7 mls @ 238.8 mls/hr IV Q2H [facility] Stop: 01/10/18 11:14 Last Admin: 01/10/18 14:11 Dose: Not Given Acetaminophen 1,000 mg/ Premix 100 mls @ 400 mls/hr IV Q6H [facility] Stop: 01/11/18 05:44 Last Admin: 01/10/18 14:11 Dose: Not Given Lactated Ringer's (Ringers, Lactated) 1,000 mls @ 100 mls/hr IV ASDIRECTED [facility] Last Admin: 01/10/18 20:11 Dose: 100 mls/hr Acetaminophen 1,000 mg/ Premix 100 mls @ 400 mls/hr IV Q6H [facility] Stop: 01/11/18 10:14 Last Admin: 01/11/18 09:02 Dose: 400 mls/hr Sodium Chloride (Normal Saline) 500 mls @ 500 mls/hr IV BOLUS ONE Stop: 01/11/18 08:59 Last Admin: 01/11/18 08:00 Dose: 500 mls/hr Insulin Aspart (Novolog) 0 unit SUBCUT QIDACANDBED [facility]; Protocol Last Admin: 01/12/18 13:55 Dose: Not Given Insulin Detemir (Levemir) 17 unit SUBCUT BID [facility] Ketamine HCl (Ketalar) 27 mg IV ASDIRECTED [facility] Ketorolac Tromethamine (Toradol) 30 mg IVPUSH Q8H PRN PRN Reason: Pain Stop: 01/15/18 11:26 Midazolam HCl (Versed 1 Mg/Ml) Confirm Administered Dose 2 mg .ROUTE .STK-MED ONE Stop: 01/10/18 06:46 Morphine Sulfate (Morphine) 2 mg IVPUSH Q2H PRN PRN Reason: Pain Last Admin: 01/10/18 15:04 Dose: 2 mg Ondansetron HCl (Zofran) 8 mg IVPUSH Q4H PRN PRN Reason: Nausea/Vomiting Last Admin: 01/10/18 15:10 Dose: 8 mg Potassium Chloride (Klor-Con M20) 20 meq PO TIDMEALS [facility] Last Admin: 01/13/18 07:27 Dose: 20 meq Povidone Iodine (Betadine 10% Soln) Confirm Administered Dose 1 ml .ROUTE .STK- MED ONE Stop: 01/10/18 07:10 Last Admin: 01/10/18 10:19 Dose: 1 ml Propofol (Diprivan 20 Ml) Confirm Administered Dose 200 mg .ROUTE .STK-MED ONE Stop: 01/10/18 06:45 Scopolamine (Transderm-Scop) 1.5 mg TOP Q72H [facility] Stop: 01/13/18 07:00 Last Admin: 01/10/18 07:47 Dose: 1.5 mg Senna (Senna) 8.6 mg PO BID PRN PRN Reason: Constipation - Exam Quality Assessment: Denies: Supplemental Oxygen General: Reports: Alert, Oriented, Cooperative, No Acute Distress Neck: Reports: Supple Lungs: Reports: Normal Respiratory Effort GI/Abdominal Exam: Soft, No Distention Extremities: No Pedal Edema Wound/Incisions: Reports: Healing Well, Drainage (very slight drainage from a small area on the lower one third of the incision), Other (staple line is intact ) Psy/Mental Status: Reports: Alert, Normal Affect
[2018-01-13] MEDS: Sodium Chloride 0.9% 10 ML Syringe FLUSH SCH (11:42)
[2018-01-13] MEDS: Cholestyramine/Sucrose Powder 4 GM Packet PO SCH (11:42)
== END 2018-01-13 14:02 | disposition home or self-care (01) ==
LOC: JP.SDS 07:24 → JP.MS 11:25 → JP.SDS 01-13 14:02
PROVIDERS: ATTEND Orthopaedic Surgery
DX: M17.12 Unilateral primary osteoarthritis, left knee (principal); I10 Essential (primary) hypertension; J44.9 Chronic obstructive pulmonary disease, unspecified; E11.42 Type 2 diabetes mellitus with diabetic polyneuropathy; E11.21 Type 2 diabetes mellitus with diabetic nephropathy; E87.6 Hypokalemia; I73.9 Peripheral vascular disease, unspecified; G45.9 Transient cerebral ischemic attack, unspecified; Z79.4 Long term (current) use of insulin; Z79.899 Other long term (current) drug therapy; Z88.1 Allergy status to other antibiotic agents; Z88.2 Allergy status to sulfonamides; Z88.8 Allergy status to other drugs, medicaments and biological substances
CPT/HCPCS: 27447; 36415; 73560; 80053; 82962; 85002; 85025; 86850; 86900; 86901; 94762; 97110; 97162; 97530; 97535; A9270; C1713; J0131; J0690; J1580; J2250; J2270; J2405; J2704; J3010; J7120

== ENCOUNTER 2018-01-26 11:28 | Emergency (ER) | payer MEDICARE, BC ==
[2018-01-26 12:32] VITALS: BP 141/57
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
[2018-01-26] MEDS ORDERED: Insulin Regular, Human 100 Units/ML 10 ML Vial SUBCUT ONE (15:44)
== END 2018-01-26 16:46 | disposition home or self-care (01) ==
LOC: JP.ED 11:28
DX: N30.00 Acute cystitis without hematuria (principal); E11.65 Type 2 diabetes mellitus with hyperglycemia; E78.00 Pure hypercholesterolemia, unspecified; I10 Essential (primary) hypertension; Z88.8 Allergy status to other drugs, medicaments and biological substances; Z88.2 Allergy status to sulfonamides; Z88.1 Allergy status to other antibiotic agents; Z88.5 Allergy status to narcotic agent; Z79.899 Other long term (current) drug therapy; Z79.4 Long term (current) use of insulin; Z96.652 Presence of left artificial knee joint
CPT/HCPCS: 36415; 80053; 81001; 82009; 82962; 83690; 85025; 87086; 99285

== ENCOUNTER 2020-06-09 12:05 | Emergency (ER) | payer MEDICARE, BC ==
[2020-06-09 12:20] VITALS: BP 175/60; PULSE 75
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
--- NOTE | 2020-06-09 14:16 | CT ---
Head wo Cont CLINICAL HISTORY: Headache COMPARISON: None TECHNIQUE: Transverse scans were obtained from the base of the skull through the vertex without IV contrast on a multislice, multidetector CT scanner. Auto dosage reduction and iterative reconstruction techniques employed. FINDINGS: There is a small focus of vague low-attenuation in the left basal ganglia near the anterior limb of the internal capsule. This is more likely chronic ischemic microvascular change as opposed to a focus of ischemic infarct.. There is no mass effect, hemorrhage, or extraaxial collection. The basal cisterns and sulci over the convexities are prominent. The ventricles are normal for age. IMPRESSION: Small vague area of low-attenuation in the left basal ganglia most likely some chronic ischemic microvascular change Generalized age-related atrophy No mass or hemorrhage
== END 2020-06-09 14:57 | disposition home or self-care (01) ==
LOC: JP.ED 12:05
DX: R51 Headache (principal); E78.00 Pure hypercholesterolemia, unspecified; I10 Essential (primary) hypertension; J44.9 Chronic obstructive pulmonary disease, unspecified; E11.9 Type 2 diabetes mellitus without complications; E66.9 Obesity, unspecified; Z68.34 Body mass index [BMI] 34.0-34.9, adult; Z79.4 Long term (current) use of insulin; Z79.899 Other long term (current) drug therapy; Z88.1 Allergy status to other antibiotic agents; Z88.5 Allergy status to narcotic agent; Z88.2 Allergy status to sulfonamides; Z79.02 Long term (current) use of antithrombotics/antiplatelets; Z86.73 Personal history of transient ischemic attack (TIA), and cerebral infarction without residual deficits
CPT/HCPCS: 70450; 70450-26; 99282; 99284-25

== ENCOUNTER 2020-12-01 20:35 | Emergency (ER) | payer MEDICARE, BC ==
[2020-12-01 20:58] VITALS: BP 153/80; PULSE 77
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
== END 2020-12-01 21:40 | disposition home or self-care (01) ==
LOC: JP.ED 20:35
DX: R42 Dizziness and giddiness (principal); I10 Essential (primary) hypertension; J44.9 Chronic obstructive pulmonary disease, unspecified; E11.9 Type 2 diabetes mellitus without complications; E66.9 Obesity, unspecified; Z68.35 Body mass index [BMI] 35.0-35.9, adult; Z91.040 Latex allergy status; Z88.8 Allergy status to other drugs, medicaments and biological substances; Z88.1 Allergy status to other antibiotic agents; Z88.5 Allergy status to narcotic agent; Z88.2 Allergy status to sulfonamides; Z79.02 Long term (current) use of antithrombotics/antiplatelets; Z79.899 Other long term (current) drug therapy; Z79.4 Long term (current) use of insulin
CPT/HCPCS: 36415; 80053; 99282; 99284